=== PATIENT | female | born 1935 | race Caucasian/White ===

== ENCOUNTER 2017-04-24 18:58 | Emergency (ER) | payer OTHER ==
[~2017-04-24] VITALS: Ht 157.5 cm; Wt 69.4 kg
[~2017-04-24 18:58] MED LIST: AMLO5 PO; ANAS1 PO; ASPI81CH PO; Amiodarone HCl200 MG PO; CALCAVITDA PO; CEPH500 PO; CLON.1 PO; Calcium Citrat1 EA10; ELIQUIS5 MG PO; ESCI20 PO; ESOM20 PO; FERR325 PO; FOLI1 PO; HYDACE10B PO; HYDSUL200 PO; Hair, Skin & N1 EACH PO; INDA2.5 PO; Indapamide PO; K-Dur20 MEQ; LEVSOD75 PO; METO25 PO; MULVITA PO; Multivitamin1 EAC1 PO; OS-CAL; Omeprazole20 M1; Omeprazole20 M1 PO; POTA10T; POTA10T PO; POTCHL20ER PO; PROM25; PROM25 PO; SULTRIDS PO; TOCO400 PO; TORSE20; Toprol Xl25 MG PO; Vitamin E PO; WARF1 PO; WARF5; WARF5 PO; WARF7.5; [UNRECOGNIZED DRUG - OTHER]
[2017-04-24] MEDS ORDERED: LEVSOD50 PO (19:28)
[2017-04-24] MEDS ORDERED: TORSE20 PO (19:29)
[2017-04-24] MEDS ORDERED: POTCHL20ER PO (19:29)
[2017-04-24 19:37] LABS: International Normalized Ratio 1.03; Prothrombin Time Results 10.7 Sec (9.7-11.5)
== END 2017-04-24 20:21 | disposition home or self-care (01) ==
LOC: ER 18:58
PROVIDERS: Emergency Medicine
DX: S01.01XA Laceration without foreign body of scalp, initial encounter (principal); I10 Essential (primary) hypertension; I48.91 Unspecified atrial fibrillation; Z88.8 Allergy status to other drugs, medicaments and biological substances; Z79.899 Other long term (current) drug therapy; Z79.82 Long term (current) use of aspirin; Z90.710 Acquired absence of both cervix and uterus; Z87.891 Personal history of nicotine dependence; W01.0XXA Fall on same level from slipping, tripping and stumbling without subsequent striking against object, initial encounter; Y92.002 Bathroom of unspecified non-institutional (private) residence as the place of occurrence of the external cause
CPT/HCPCS: 12002; 70450; 85610; 85730; 99284

== ENCOUNTER 2017-06-10 08:43 | Day surgery (SDC) | payer OTHER ==
[~2017-06-10] VITALS: Ht 157.5 cm; Wt 71.3 kg
[~2017-06-10 08:43] MED LIST changes: +LEVSOD50 PO; +TORSE20 PO
== END 2017-06-10 11:20 | disposition home or self-care (01) ==
LOC: ORSCSDS 08:43
PROVIDERS: Otolaryngology
PROC: 03BS0ZX Excision of Right Temporal Artery, Open Approach, Diagnostic (ICD-10-PCS; principal; 2017-06-10 10:00)
DX: M31.6 Other giant cell arteritis (principal); H40.9 Unspecified glaucoma; I10 Essential (primary) hypertension; M32.9 Systemic lupus erythematosus, unspecified; G47.33 Obstructive sleep apnea (adult) (pediatric); Z86.718 Personal history of other venous thrombosis and embolism; Z99.81 Dependence on supplemental oxygen; J44.9 Chronic obstructive pulmonary disease, unspecified; F17.210 Nicotine dependence, cigarettes, uncomplicated; Z79.01 Long term (current) use of anticoagulants; Z79.899 Other long term (current) drug therapy
CPT/HCPCS: 88305; 88313; J0171; J1100; J2250; J3010; J7120

== ENCOUNTER 2018-03-14 10:31 | Inpatient (IN) | payer OTHER ==
[~2018-03-14] VITALS: Ht 165.1 cm; Wt 69.2 kg
[2018-03-14 10:50] LABS: Calcium, Ionized (POC) 1.19 mmol/L (1.10-1.46); Chloride (POC) 105 mmol/L (98-108); Creatinine (POC) 2.4 mg/dL (0.6-1.0); Glucose (ISTAT POC) 102 mg/dL (70-99); Hemoglobin (POC) 12.2 g/dL (12.0-16.0); Potassium (POC) 2.8 mmol/L (3.5-5.5); Sodium (POC) 143 mmol/L (135-148); Total CO2 (POC) 23 mmol/L (21-32)
[2018-03-14 11:12] LABS: Source, Urine Catheter
[2018-03-14 11:17] LABS: Appearance, Urine Clear (Clear); Bilirubin, Urine Neg (Neg); Blood, Urine 2+ (Neg); Color, Urine Yellow (P-Yellow); Glucose Qualitative, Urine 1+ (Neg); Ketones, Urine 1+ (Neg); Leukocyte Esterase, Urine Neg (Neg); Nitrite, Urine Neg (Neg); Protein, Urine 3+ (Neg); Urobilinogen, Urine NORM (Normal)
[2018-03-14 11:19] LABS: Hematocrit 37.4 % (33.0-51.0); Hemoglobin 11.9 g/dL (11.5-16.0); Mean Corpuscular HGB 32.8 pg (26.0-34.0); Mean Corpuscular HGB Conc 31.8 g/dL (31.5-36.5); Mean Corpuscular Volume 103 fL (80-100); Mean Platelet Volume 11.8 fL (9.1-12.4); Platelet Count 101 K/mm3 (150-400); RDW Coefficient Variation 13.1 % (11.7-14.2); RDW Standard Deviation 49.9 fL (35.1-46.3); Red Blood Cell Count 3.63 M/mm3 (3.80-5.20); White Blood Cell Count 4.26 K/mm3 (4.00-11.30)
[2018-03-14 11:31] LABS: International Normalized Ratio 1.3; Prothrombin Time Results 13.2 Sec (9.7-11.5)
[2018-03-14 11:32] LABS: Squamous Epithelial Cells Few /hpf (Few); U Amphetamine Screen Not Detected; U Barbituate Screen Not Detected; U Benzodiazapine Screen Not Detected; U Buprenorphine Screen Not Detected; U Cannabinoids Screen Not Detected; U Cocaine Screen Not Detected; U Methadone Screen Not Detected; U Methamphetamine Screen Not Detected; U Opiates Screen Not Detected; U Oxycodone Screen Not Detected; U Phencyclidine Screen Not Detected; U Propoxyphene Screen Not Detected; White Blood Cells, Urine Not Seen /hpf (0-5)
[2018-03-14 11:33] LABS: Bacteria Not Seen /hpf
[2018-03-14 11:34] LABS: Alanine Aminotransfer (ALT/SGP 30 U/L (12-78); Albumin, Blood 2.7 g/dL (3.4-5.0); Albumin/Globulin Ratio 0.7 (0.8-1.8); Alk Phos 45 U/L (50-136); Anion Gap 12 mmol/L (6-16); Aspartate Aminotrans (AST/SGOT 92 U/L (12-37); Bilirubin, Total 0.7 mg/dL (0.1-1.0); Blood Urea Nitrogen 37 mg/dL (8-24); Bun/Creatinine Ratio 16.6 (12.0-20.0); CO2, Blood 23 mmol/L (21-32); Chloride, Blood 110 mmol/L (98-108); Creatinine, Blood 2.23 mg/dL (0.40-1.00); Ethanol (Alcohol), Blood, Med <3 mg/dL; Globulin, Blood 3.7 g/dL (2.2-4.0); Glomerular Filtration Rate 22 (60-); Glucose, Blood 100 mg/dL (70-99); Potassium, Blood 3.1 mmol/L (3.5-5.5); Sodium, Blood 145 mmol/L (136-145); Total Protein, Blood 6.4 g/dL (6.4-8.2)
[2018-03-14 11:42] LABS: BAND PERCENT MAN 40 % (0-8); BASOPHILS ABSOLUTE MAN 0.04 K/mm3 (0.00-0.23); BASOPHILS PERCENT MAN 1 % (0-2); EOSINOPHILS PERCENT MAN 0 % (0-6); LYMPHOCYTES % ATYPICAL MANUAL 1 % (0-0); LYMPHOCYTES ABSOLUTE MAN 0.59 K/mm3 (0.84-5.20); LYMPHOCYTES PERCENT MAN 13 % (21-46); METAMYELOCYTE ABSOLUTE MAN 0.42 K/mm3 (0.00-0.00); METAMYELOCYTE PERCENT MAN 10 % (0-0); MONOCYTES ABSOLUTE MAN 0.51 K/mm3 (0.16-1.47); MONOCYTES PERCENT MAN 12 % (4-13); NEUTROPHILS ABSOLUTE MAN 2.68 K/mm3 (1.96-9.15); SEG NEUTROPHILS PERCENT MAN 23 % (41-73); TOTAL CELLS COUNTED 100
[2018-03-14 11:49] LABS: PCO2 Arterial 50.5 mmHg (35-45)
[2018-03-14 11:50] LABS: PO2 Arterial 49.8 mmHg (80-100); pH Blood Arterial 7.29 (7.35-7.45)
[2018-03-14 12:08] LABS: Influenza A Negative (NEGATIVE); Influenza B Negative (NEGATIVE)
[2018-03-14 16:38] LABS: Color, CSF No Color (No Color)
[2018-03-14 16:39] LABS: Appearance, CSF Clear (Clear)
[2018-03-14 17:11] LABS: WBC Count, CSF 3 /mm3 (0-5)
[2018-03-14 17:13] LABS: RBC Count, CSF 1 /mm3 (0-0)
--- NOTE | 2018-03-14 17:23 | NUR ---
FEMALE PATIENT ADMITTED TO ICU5 FROM ER. MOVED TO BED WITH ORTEGA SLIDER SHEET. EXTREMELY RESTLESS. OCC PINCHING AND REACHING FOR TUBES. PATIENT HAD A LARGE FOUL SMELLING LIQ BROWN BM. CLEANED UP AND RECTAL TUBE APPLIED. THIS WAS HER THIRD STOOL IN THE LAST FEW HOURS. NIYA JACKET APPLIED TO KEEP HER FRON SLIDING OUT THE FOOT OF THE BED. ALSO NASH WRIST RESTRAINTS. WHEN ASKED PATIENT TO SWALLOW DURING THE INSERTION OF A #16 SUMP SHE SAID SEVERAL TIMES "i WILL, I WILL" ON 12L OXYMIZER WITH SPO2 AT 96%. ANOTHER IV STARTED ON LEFT WRIST #20.
[2018-03-14 17:28] LABS: Glucose, CSF 69 mg/dL (40-70)
--- NOTE | 2018-03-14 19:30 | NUR ---
ASSUMED CARE BEDSIDE REPORT RECIEVED. PT IS LAYING SIDEWAYS IN BED WITH LEGS OVER BEDRAIL. PT IN NIYA VEST AND SBW RESTRAINTS. PT IS FIDGETING AND RESTLESS. PT IS UNABLE TO FOLLOW COMMANDS OR ANSWER QUESTIONS. PT SPEAKS SOME WORDS AT TIMES, BUT IS CONFUSED. PT ON 10L OXYMIZER, VITAL SIGNS STABLE, SPO2 90%. NGT IN PLACE, CLAMPED. RECTAL TUBE IN PLACE WITH LARGE AMOUNTS OF LIQUID BROWN/BILE COLORED STOOL. PT WITH MULTIPLE BRUISES ON BLE. SEE PHOTOS. WILL CONTINUE TO MONITOR.
[2018-03-14] MEDS ORDERED: Toviaz8 MG PO (20:35)
--- NOTE | 2018-03-14 21:49 | NUR ---
SHIRLENE SHANNON CALLED GARRETT SHANNON NP AND UPDATED TO PT CONDITION AND VITAL SIGNS. ORDER RECIEVED FOR BIPAP TITRATE NEEDED. RT NOTIFIED. WILL CONTINUE TO MONITOR.
--- NOTE | 2018-03-14 22:21 | NUR ---
BIPAP PT PLACED ON BIPAP 02/27, FIO2 50%. PT RESTING QUIETLY WITH SPO2 >94% AT THIS TIME. WILL CONTINUE TO MONITOR.
[2018-03-14 22:44] LABS: Magnesium, Blood 2.2 mg/dL (1.6-2.4); Potassium, Blood 4.3 mmol/L (3.5-5.5)
[2018-03-14 22:52] LABS: pH Blood Arterial 7.25 (7.35-7.45)
[2018-03-14 22:53] LABS: PCO2 Arterial 50.9 mmHg (35-45); PO2 Arterial 73.7 mmHg (80-100)
[2018-03-14 23:26] LABS: Bun/Creatinine Ratio 15.7 (12.0-20.0); Calcium, Blood 7.8 mg/dL (8.5-10.1); Creatinine, Blood 3.31 mg/dL (0.40-1.00); Potassium, Blood 4.3 mmol/L (3.5-5.5)
[2018-03-14 23:44] LABS: Source, Urine Catheter
[2018-03-14 23:46] LABS: Bilirubin, Urine Neg (Neg); Blood, Urine 5+ (Neg); Glucose Qualitative, Urine 1+ (Neg); Ketones, Urine Neg (Neg); Leukocyte Esterase, Urine Neg (Neg); Nitrite, Urine Neg (Neg); Protein, Urine 3+ (Neg); Specific Gravity, Urine 1.015 (1.003-1.022); Urobilinogen, Urine NORM (Normal)
--- NOTE | 2018-03-15 00:09 | NUR ---
WO[employer]OWEL MACHINE OPERATOR GARRETT SHANNON HERE TO SEE PT. REVIEWED CHART, ASSESSED PT. CHEST XRAY SHOWED NGT TO BE COILED UP IN INCORRECT PLACEMENT. ORDERS TO REMOVE NGT AND PLACE DOBHOFF. DOBHOFF PLACED, REPEAT CHEST XRAY DONE, PLACEMENT CONFIRMED. RUBIN INSERTED PER ORDERS, UA SENT. MRSA NARES SENT. REPEAT LABS ORDERED. CRITICAL ABG VALUES REVIEWED WITH GARRETT SHANNON. SEE ORDER HISTORY FOR NEW MEDS/ORDERS. PT AGITATED WITH CARE, RESTING QUIETLY NOW. WILL CONTINUE TO MONITOR.
[2018-03-15 00:13] LABS: Appearance, Urine Hazy (Clear); Color, Urine Yellow (P-Yellow)
[2018-03-15 00:15] LABS: Amorphous Heavy ({null, 0-Heavy}); Bacteria Rare /hpf; Hyaline Casts 0-2 /lpf (0-2); Squamous Epithelial Cells Rare /hpf (Few); White Blood Cells, Urine 0-2 /hpf (0-5)
[2018-03-15 02:44] LABS: Hemoglobin 10.5 g/dL (11.5-16.0); Mean Corpuscular HGB 33.9 pg (26.0-34.0); Mean Corpuscular HGB Conc 31.8 g/dL (31.5-36.5); Mean Platelet Volume 11.5 fL (9.1-12.4); Platelet Count 82 K/mm3 (150-400); RDW Coefficient Variation 13.6 % (11.7-14.2); RDW Standard Deviation 53.2 fL (35.1-46.3); White Blood Cell Count 9.07 K/mm3 (4.00-11.30)
[2018-03-15 02:53] LABS: Mean Corpuscular Volume 107 fL (80-100)
[2018-03-15 02:57] LABS: Bun/Creatinine Ratio 15.2 (12.0-20.0); Calcium, Blood 7.6 mg/dL (8.5-10.1); Creatinine, Blood 3.63 mg/dL (0.40-1.00); Magnesium, Blood 2.2 mg/dL (1.6-2.4); Potassium, Blood 3.8 mmol/L (3.5-5.5)
[2018-03-15 03:00] LABS: Albumin, Blood 2.3 g/dL (3.4-5.0); Anion Gap 12 mmol/L (6-16); Blood Urea Nitrogen 56 mg/dL (8-24); Bun/Creatinine Ratio 15.6 (12.0-20.0); CO2, Blood 21 mmol/L (21-32); Calcium, Blood 7.6 mg/dL (8.5-10.1); Chloride, Blood 114 mmol/L (98-108); Glomerular Filtration Rate 13 (60-); Glucose, Blood 99 mg/dL (70-99); Phosphorus, Blood 3.3 mg/dL (2.5-4.9); Potassium, Blood 3.8 mmol/L (3.5-5.5); Sodium, Blood 147 mmol/L (136-145)
--- NOTE | 2018-03-15 03:29 | NUR ---
DR SCHILLING NOTIFIED DR SCHILLING OF BNP AND OTHER LAB WORK. ORDER RECIEVED TO STOP IVF AND GET ANOTHER RENAL PANEL. ALSO NOTIFIED OF ONLY 50 ML URINE OUTPUT SINCE RUBIN INSERTION.
[2018-03-15 04:35] LABS: BAND PERCENT MAN 41 % (0-8); BASOPHILS PERCENT MAN 0 % (0-2); EOSINOPHILS PERCENT MAN 0 % (0-6); LYMPHOCYTES PERCENT MAN 10 % (21-46); METAMYELOCYTE ABSOLUTE MAN 0.54 K/mm3 (0.00-0.00); METAMYELOCYTE PERCENT MAN 6 % (0-0); MONOCYTES ABSOLUTE MAN 1.36 K/mm3 (0.16-1.47); MONOCYTES PERCENT MAN 15 % (4-13); MYELOCYTE ABSOLUTE MAN 0.09 K/mm3 (0.00-0.00); MYELOCYTE PERCENT MAN 1 % (0-0); NEUTROPHILS ABSOLUTE MAN 6.16 K/mm3 (1.96-9.15); SEG NEUTROPHILS PERCENT MAN 27 % (41-73); TOTAL CELLS COUNTED 100
--- NOTE | 2018-03-15 06:20 | NUR ---
SHIFT SUMMARY PT REMAINS ON BIPAP AT THIS TIME 02/27, FIO2 25%. VITAL SIGNS HAVE REMAINED STABLE. PT CONTINUES TO BE CONFUSED/AGITATED AT TIMES. PT RESTING QUIETLY AT THIS TIME. PT RESTRAINED WITH NIYA VEST AND SBW RESTRAINTS. DOBHOFF REMAINS IN PLACE. RUBIN REMAINS IN PLACE WITH ONLY 50 ML OUTPUT FOR THIS SHIFT. DR SCHILLING AWARE. RECTAL TUBE REMAINS IN PLACE WITH LARGE OUTPUT OF LIQUID BROWN/BILE STOOL. IV'S SALINE LOCKED. SEE PREVIOUS NOTES FOR MORE SHIFT INFO. WILL CONTINUE TO MONITOR AND REPORT OFF TO ONCOMING RN.
--- NOTE | 2018-03-15 07:15 | NUR ---
RECEIVED REPORT FROM GARRETT, BUFFER COPPER, AND ASSUMED CARE OF PT.
--- NOTE | 2018-03-15 07:30 | NUR ---
BIPAP SETTINGS 12/8-25%, ROSS WITH RESPIRATORY AT BEDSIDE. SATS 95%, VSS. CONFUSED, DOES NOT FOLLOW DIRECTIONS, OPENS EYES WHEN TALKING TO HER. LUNGS COARSE THROUGHOUT. SR 80'S ON MONITOR. RECTAL TUBE IN PLACE COLLECTED BROWN LIQUID STOOL. RUBIN IN PLACE WITH SCANT AMOUNTS YELLOW URINE. BILATERAL SOFT WRIST RESTRAINTS IN PLACE, PULLS OFF BIPAP MASK AND TUBES. NIYA VEST IN PLACE, PT MOVES AROUND ALOT IN BED AND ATTEMPTS TO SCOOT DOWN AND OUT THE BOTTOM OF THE BED. DOBHOFF IN PLACE, NO RESIDUALS. LEFT FOREARM AND LEFT WRIST SALINE LOCKS, RECEIVES ANTIBIOTICS.
[2018-03-15 08:11] LABS: PCO2 Arterial 45.1 mmHg (35-45); PO2 Arterial 61.7 mmHg (80-100)
[2018-03-15 08:12] LABS: pH Blood Arterial 7.29 (7.35-7.45)
--- NOTE | 2018-03-15 08:30 | NUR ---
CALLED DR. LINO WITH CRITICAL ABG RESULTS. CALLED HARPER IN RESPIRATORY TO INCREASE PRESSURES ON BIPAP.
--- NOTE | 2018-03-15 09:04 | NUR ---
Angela was sleeping on non-invasive airway support and appeared comfortable and well managed. No indications of distress or conflict noted. She showed modest signs of awareness, but remained non-communicative throughout. I provided supportive bedside presence, words of reassurance, and audible prayer for encouragement, comfort and non-pharmaceutical benefit.
--- NOTE | 2018-03-15 09:20 | NUR ---
ECHO AT BEDSIDE.
--- NOTE | 2018-03-15 11:17 | NUR ---
STARTED NEPRO TUBE FEEDINGS AT 20 CC/HR TO START, WILL RAMP UP TOLERATED TO GOAL RATE OF 40 CC/HR, H2O 30 CC FLUSHES EVERY 4 HOURS. CHECKED DOBHOFF PLACEMENT, WITH GOOD PLACEMENT, NO RESIDUALS.
[2018-03-15 16:42] LABS: Albumin, Blood 2.3 g/dL (3.4-5.0); Anion Gap 11 mmol/L (6-16); Blood Urea Nitrogen 69 mg/dL (8-24); Bun/Creatinine Ratio 15.3 (12.0-20.0); CO2, Blood 22 mmol/L (21-32); Calcium, Blood 7.8 mg/dL (8.5-10.1); Chloride, Blood 114 mmol/L (98-108); Glomerular Filtration Rate 10 (60-); Glucose, Blood 101 mg/dL (70-99); Phosphorus, Blood 3.7 mg/dL (2.5-4.9); Potassium, Blood 3.5 mmol/L (3.5-5.5); Sodium, Blood 147 mmol/L (136-145); Uric Acid, Blood 8.3 mg/dL (2.6-6.0)
--- NOTE | 2018-03-15 18:30 | NUR ---
PATIENT INTUBATED BY DR. ZHANG. VENTILATOR SETTINGS 16/400/5 30%. PROPOFOL STARTED AT 10 MCG/KG/HR = 3.4 ML/HR. VSS. SINUS RHYTHM 92.
[2018-03-15 18:49] LABS: Albumin, Blood 2.3 g/dL (3.4-5.0); Anion Gap 13 mmol/L (6-16); Blood Urea Nitrogen 72 mg/dL (8-24); Bun/Creatinine Ratio 15.4 (12.0-20.0); CO2, Blood 21 mmol/L (21-32); Calcium, Blood 7.8 mg/dL (8.5-10.1); Chloride, Blood 112 mmol/L (98-108); Creatinine, Blood 4.68 mg/dL (0.40-1.00); Glomerular Filtration Rate 9 (60-); Glucose, Blood 107 mg/dL (70-99); Phosphorus, Blood 3.5 mg/dL (2.5-4.9); Potassium, Blood 3.3 mmol/L (3.5-5.5); Sodium, Blood 146 mmol/L (136-145)
[2018-03-15 19:22] LABS: CPK Creatine Kinase >20000 U/L (26-193)
[2018-03-15 20:17] LABS: Base Excess Venous -5.8 mmol/L; Bicarbonate Venous 19.2 mmol/L (24.0-30.0); PCO2 Venous 43.3 mmHg (38-42); PO2 Venous 30.8 mmHg (38-42); pH Blood Venous 7.29 (7.34-7.37)
--- NOTE | 2018-03-15 23:42 | NUR ---
ASSUMED CARE RECEIVED REPORT FROM ICU, RN. PT IS ADMITTED AFTER BEING FOUN DOWN BY FAMILY AT HOME. PT IS CURRENTLY INTUBATED. VENT SETTINGS ARE AC 16, TV 400, FIO2 30%, AND PEEP 5. PT SPO2 IS MAINTAINING IN THE MID 90'S AT THIS TIME. AT THE TIME OF SHIFT REPORT PT IS RECEIVING NS AT 250ML/HR. SHORTLY AFTER CARE ASSUMED ORDER RECEIVED FOR 1/2NS AT 200ML/HR. FLUIDS CHANGED PER ORDER. PT IS ALSO RECEIVING PROPOFOL FOR SEDATION AT 10MCG/KG/MIN. PT IS RESPONSIVE TO NOXIOUS STIMULI ONLY AT THIS TIME. PT HAS RUBIN TEMP PROBE IN PLACE. PT CURRENT TEMP IS IN THE 98.4 RANGE. PT HAS HAD VERY SMALL AMOUNT OF URINE OUTPUT OVER DAY SHIFT PER REPORT. PT IS ON CONTACT PRECAUTIONS DUE TO C-DIFF. PT HAS A RECTAL TUBE IN PLACE. PT TAKEN TO CT FOR ABD/PELVIC SCAN SHORTLY AFTER CARE ASSUMED. ABDOMINAL PRESSURE TAKEN WITH A RESULT OF 15. INSTRUCTIONS WERE GIVEN/LEFT BY DAY SHIFT THAT DR ZHANG IS TO BE CALLED WITH ABD PRESSURE IF RESULTS ARE [address] ZHANG NOT CALLED WITH RESULTS AT THIS TIME. ASSUMED CARE OF PT AT THE ITME OF SHIFT REPORT. WILL CONTINUE TO MONITOR PT
[2018-03-16 03:35] LABS: Hematocrit 30.6 % (33.0-51.0); Hemoglobin 9.9 g/dL (11.5-16.0); Mean Corpuscular HGB 33.8 pg (26.0-34.0); Mean Corpuscular HGB Conc 32.4 g/dL (31.5-36.5); Mean Platelet Volume 12.1 fL (9.1-12.4); Platelet Count 75 K/mm3 (150-400); RDW Coefficient Variation 13.7 % (11.7-14.2); RDW Standard Deviation 53.1 fL (35.1-46.3); Red Blood Cell Count 2.93 M/mm3 (3.80-5.20)
[2018-03-16 03:38] LABS: Mean Corpuscular Volume 104 fL (80-100)
[2018-03-16 03:53] LABS: Albumin, Blood 1.9 g/dL (3.4-5.0); Anion Gap 10 mmol/L (6-16); Blood Urea Nitrogen 76 mg/dL (8-24); Bun/Creatinine Ratio 16.3 (12.0-20.0); CO2, Blood 20 mmol/L (21-32); CPK Creatine Kinase 906 U/L (26-193); Calcium, Blood 7.1 mg/dL (8.5-10.1); Chloride, Blood 115 mmol/L (98-108); Creatinine, Blood 4.67 mg/dL (0.40-1.00); Glomerular Filtration Rate 10 (60-); Glucose, Blood 91 mg/dL (70-99); Magnesium, Blood 2.2 mg/dL (1.6-2.4); Phosphorus, Blood 2.1 mg/dL (2.5-4.9); Potassium, Blood 4.1 mmol/L (3.5-5.5); Sodium, Blood 145 mmol/L (136-145)
--- NOTE | 2018-03-16 03:59 | NUR ---
SEDATION VACATION WEAN AND SEDATION VACATION STARTED AT APPROX 0357. WILL CONTINUE TO MONITOR PT.
[2018-03-16 04:36] LABS: BAND PERCENT MAN 37 % (0-8); BASOPHILS PERCENT MAN 0 % (0-2); EOSINOPHILS ABSOLUTE MAN 0.09 K/mm3 (0.00-0.68); EOSINOPHILS PERCENT MAN 1 % (0-6); LYMPHOCYTES ABSOLUTE MAN 0.89 K/mm3 (0.84-5.20); LYMPHOCYTES PERCENT MAN 9 % (21-46); MONOCYTES ABSOLUTE MAN 0.59 K/mm3 (0.16-1.47); MONOCYTES PERCENT MAN 6 % (4-13); MYELOCYTE ABSOLUTE MAN 0.09 K/mm3 (0.00-0.00); MYELOCYTE PERCENT MAN 1 % (0-0); NEUTROPHILS ABSOLUTE MAN 8.21 K/mm3 (1.96-9.15); SEG NEUTROPHILS PERCENT MAN 46 % (41-73); TOTAL CELLS COUNTED 100
[2018-03-16 05:00] LABS: PCO2 Arterial 38.1 mmHg (35-45); PO2 Arterial 56.8 mmHg (80-100)
--- NOTE | 2018-03-16 06:45 | NUR ---
SHIFT SUMMARY NOTE PT REMAINS INTUBATED AT THIS TIME. PT VENT SETTINGS AT THIS TIME ARE AC 16, TV 400, FIO2 40%, PEEP 5. PT IS CURRENTLY MAINTAINING SPO2 IN THE LOW 90'S. PT CONTINUES TO HAVE THICK YELLOW SPUTUM SUCTIONED FROM ETT TUBE. PT CONTINUES TO HAVE RUBIN TEMP PROBE IN PLACE. PT TEMPERATURE HAS MAINTAINED IN THE 98.5 RANGE THROUGH MUCH OF THE NIGHT TEMPERATURE INCREASED TO 99.0 AT APPROX 0600. PT HAD MINIMAL URINE OUTPUT OVERNIGHT OF APPROX 30ML. PT IS CURRENTLY RECEIVING PROPOFOL AT 25MCG/KG/MIN FOR SEDATION. PT SEDATION VACATION WAS APPROX 45MIN. REFER TO RT CHARTING FOR TIMES AND DETAILS OF WEAN TRIAL. PT WAS ABLE TO WAKE UP AND FOLLOW COMMANDS THROUGH SEDATION VACATION. PT IS RECEIVING 1/2 NS AT 200ML/HR IN ADDITION TO PROPOFOL. PT IS RECEIVING TF AT GOAL RATE OF 40ML/HR. PT HAS DOBHOFF IN PLACE. PT CONTINUES TO HAVE RECTAL TUBE IN PLACE. PT HAS HAD DARK GREEN LIQUID STOOL FROM RECTAL TUBE. WILL REPORT OFF TO ONCOMING DAY SHIFT NURSE.
--- NOTE | 2018-03-16 11:15 | NUR ---
PT LIGHLY SEDATED AND RESTING WELL ON PROPOFOL. PT VSS NOTED. DR DOOLEY IN AND NS TO BE CHANGED TO 150ML AND WILL FOLLOW U.O. PT WAS LEAKING FORM RECTAL TUBE AND CLEANED.
--- NOTE | 2018-03-16 14:20 | NUR ---
SL INCREASE IN AGITATION, PROPOFOL INC TO 30MCG. VSS. TEMP SLOWLY INC NOW TO 99.9 NOTED.
--- NOTE | 2018-03-16 17:07 | NUR ---
PT RESTING WELL WITH PROPOFOL AT 30MCG. TOLERATING TF NEPRO AT 40 AND GOAL. FLEXISEAL SLOWING WITH ONLY 100ML OUT. UO ONLY 100ML THIS SHIFT EVEN WITH 4MG BUMEX EARLIER. VSS. WITH POSITIONING FLEXISEAL HAS NOT LEAKED AGAIN TO THIS POINT. PT WILL GRIMISE TO ORAL CARE AND MOVEMENT.
--- NOTE | 2018-03-16 17:17 | NUR ---
REPORT GIVEN TO MANISH Simon RN WHO WILL REPORT TO NOC SHIFT.
--- NOTE | 2018-03-16 19:15 | NUR ---
ASSUMED CARE REPORT AND ASSESSMENT COMPLETED. PT INTUBATED AT AC16/400/45%/5 AND SEDATED VIA PROPOFOL AT 30MCG/KG/MIN. PT OPENS EYES TO VOICE, + COUGH & GAG, WITH PAIN RESPONSE TO ALL CARE BUT DOES NOT CURRENTLY FOLLOW COMMANDS. VSS, EKG SHOWS SR AND O2 SATS 95%. 1/2 NS AT 150ML/HR AND NS TKO. FC IN PLACE WITH MINIMAL UOP AND RECTAL TUBE DRAINING TO GRAVITY. PLAN TO CALL FOR PAIN CONTROL MEDS AND SBT IN AM.
--- NOTE | 2018-03-17 04:00 | NUR ---
SBT PROPOFOL AT 10MCG/KG/MIN, PT WAKES AFTER FIVE MINUTES, OPENS EYES TO VOICE, IS ABLE TO FOLLOW SIMPLE COMMANDS AND ANSWER YES/NO QUESTIONS VIA SHAKING HEAD. CURRENTLY PT DENIES PAIN OR FEELING LIKE SHE IS HAVING DIFFICULTY BREATHING. TV'S 300-420'S, RR 22-24 BUT SBP SLOWLY RISING FROM 140'S TO 160'S. PLAN TO LEAVE PT ON PS 5/0 FIO2 AT 40% SHE TOLERATES.
[2018-03-17 04:26] LABS: Hematocrit 29.5 % (33.0-51.0); Hemoglobin 9.5 g/dL (11.5-16.0); Mean Corpuscular HGB 33.5 pg (26.0-34.0); Mean Corpuscular HGB Conc 32.2 g/dL (31.5-36.5); Mean Corpuscular Volume 104 fL (80-100); Mean Platelet Volume 12.3 fL (9.1-12.4); Platelet Count 75 K/mm3 (150-400); RDW Coefficient Variation 13.9 % (11.7-14.2); RDW Standard Deviation 53.7 fL (35.1-46.3); Red Blood Cell Count 2.84 M/mm3 (3.80-5.20); White Blood Cell Count 9.52 K/mm3 (4.00-11.30)
[2018-03-17 04:39] LABS: Albumin, Blood 1.8 g/dL (3.4-5.0); Anion Gap 10 mmol/L (6-16); Blood Urea Nitrogen 81 mg/dL (8-24); Bun/Creatinine Ratio 16.2 (12.0-20.0); CO2, Blood 18 mmol/L (21-32); Calcium, Blood 7.3 mg/dL (8.5-10.1); Chloride, Blood 108 mmol/L (98-108); Creatinine, Blood 4.99 mg/dL (0.40-1.00); Glomerular Filtration Rate 9 (60-); Glucose, Blood 93 mg/dL (70-99); Phosphorus, Blood 1.6 mg/dL (2.5-4.9); Potassium, Blood 3.6 mmol/L (3.5-5.5); Sodium, Blood 136 mmol/L (136-145); Vancomycin, Random 13.9 ug/mL
--- NOTE | 2018-03-17 04:45 | NUR ---
RETURN TO AC PT RR INCREASING TO 28. WHEN ASKED, PT NODS HEAD YES TO QUESTIONS ABOUT INCREASED WORK OF BREATHING AND PAIN. RT NOTIFIED AND PT RETURNED TO AC 16/400/40/5 AND PROPOFOL TITRATED BACK UP TO 40MCG/KG/MIN.
[2018-03-17 05:20] LABS: BAND PERCENT MAN 14 % (0-8); BASOPHILS PERCENT MAN 0 % (0-2); EOSINOPHILS ABSOLUTE MAN 0.19 K/mm3 (0.00-0.68); EOSINOPHILS PERCENT MAN 2 % (0-6); LYMPHOCYTES ABSOLUTE MAN 0.28 K/mm3 (0.84-5.20); LYMPHOCYTES PERCENT MAN 3 % (21-46); MONOCYTES ABSOLUTE MAN 0.38 K/mm3 (0.16-1.47); MONOCYTES PERCENT MAN 4 % (4-13); MYELOCYTE ABSOLUTE MAN 0.09 K/mm3 (0.00-0.00); MYELOCYTE PERCENT MAN 1 % (0-0); NEUTROPHILS ABSOLUTE MAN 8.56 K/mm3 (1.96-9.15); SEG NEUTROPHILS PERCENT MAN 76 % (41-73); TOTAL CELLS COUNTED 100
--- NOTE | 2018-03-17 06:48 | NUR ---
SHIFT SUMMARY NO ACUTE CHANGES OVERNIGHT. PT REMAINS INTUBATED AT AC 16/450/40/5 AND SEDATED VIA PROPOFOL AT 40MCG/KG/MIN. 1/2 NS AT 150ML/HR AND NS TKO. TF REMAIN AT GOAL OF 40ML/HR AND RECTAL TUBE HAS HAD 150ML OUT. CALL TO DR DOOLEY THIS AM FOR LOW PHOS AND UPDATED ON UPWARD TRENDING BUN AND CREATININE ORDER OBTAINED FOR KPHOS RIDER ONCE IT ARRIVES FROM PHARMACY. VSS, BP OCCASIONALY HYPERTENSIVE ESPECIALLY DURING SBT, EKG SHOWS SB/SR AND O2 SATS 96%.
--- NOTE | 2018-03-17 08:36 | NUR ---
PT RESTING W/O CURRENT DISTRESS EXCEPT FOR ORAL CARE WHEN HE GRIMISES. IVF NOTED. PT SEEM TO BE SLOWING VIA FLEXISEAL TUBE, GREEN RETURN. U.O. 50ML PRIOR TO AM BUMEX DOSE FOR THIS SHIFT. PICC LINE APPROVED PER DR LINO. PT TOLERATING T.F. AT 40ML OF NEPRO. NOTHING SX PER ET AT THIS TIME. GENERAL PUFFINESS OF EXTREMETIES NOTED.
--- NOTE | 2018-03-17 09:26 | NUR ---
DOBBHOF TUBE APPROX +/- 1CM AT 66CM AND WELL SEQUIRED.
--- NOTE | 2018-03-17 11:19 | NUR ---
PICC PLACED RINKU AND NOW INFUSING IVF WELL. 1/2 NS D/C. YANETO NOW INFUSING.
--- NOTE | 2018-03-17 11:40 | NUR ---
T.F. NEPRO ADJUSTED TO 35ML PER DIETARY.
--- NOTE | 2018-03-17 18:25 | NUR ---
PT RESTING W/O RESP. OR PHSYCIAL DISTRESS. VS, SATS, I/O NOTED WITH INC U.O. NOTED. PT REMAINS RESTRAINED, AND ONLY HAS HAD FENT. MEDS TIMES 2 THIS DAY ABOVE THE PROPOFOL .
--- NOTE | 2018-03-17 19:31 | NUR ---
CARE ASSUMED REPORT RECEIVED, CARE ASSUMED. PT INTUBATED AND SEDATED. SEE SHIFT ASSESSMENT. VITALS STABLE. SEE FLOWSHEET.
--- NOTE | 2018-03-17 20:32 | NUR ---
DOBHOFF REPLACEMENT CALL TO DR JULIEN FOR DOBHOFF PLACEMENT CONFIRMATION. PER DR JULIEN, DOBHOFF LOOKS GOOD AND CAN BE USED.
--- NOTE | 2018-03-17 21:52 | NUR ---
DOBHOFF REPLACEMENT NEW DOBHOFF PLACED PREVIOUS DOBHOFF NOT PATENT AFTER MULTIPLE ATTEMPTS. PLACEMENT CONFIRMED. TUBE FEEDING RESTARTED.
[2018-03-18 03:57] LABS: BASOPHILS ABSOLUTE AUTO 0.02 K/mm3 (0.00-0.23); BASOPHILS PERCENT AUTO 0 % (0-2); EOSINOPHILS ABSOLUTE AUTO 0.19 K/mm3 (0.00-0.68); EOSINOPHILS PERCENT AUTO 3 % (0-6); Hemoglobin 9.1 g/dL (11.5-16.0); IMMATURE GRAN PERCENT AUTO 1 % (0-1); LYMPHOCYTES ABSOLUTE AUTO 0.39 K/mm3 (0.84-5.20); LYMPHOCYTES PERCENT AUTO 5 % (21-46); MONOCYTES ABSOLUTE AUTO 0.78 K/mm3 (0.16-1.47); MONOCYTES PERCENT AUTO 10 % (4-13); Mean Corpuscular HGB 33.2 pg (26.0-34.0); Mean Corpuscular HGB Conc 32.5 g/dL (31.5-36.5); Mean Corpuscular Volume 102 fL (80-100); Mean Platelet Volume 11.9 fL (9.1-12.4); NEUTROPHILS ABSOLUTE AUTO 6.13 K/mm3 (1.96-9.15); NEUTROPHILS PERCENT AUTO 81 % (41-73); Platelet Count 70 K/mm3 (150-400); Red Blood Cell Count 2.74 M/mm3 (3.80-5.20); White Blood Cell Count 7.61 K/mm3 (4.00-11.30)
[2018-03-18 04:14] LABS: Albumin, Blood 1.6 g/dL (3.4-5.0); Anion Gap 14 mmol/L (6-16); Blood Urea Nitrogen 88 mg/dL (8-24); Bun/Creatinine Ratio 16.7 (12.0-20.0); CO2, Blood 17 mmol/L (21-32); Calcium, Blood 8.1 mg/dL (8.5-10.1); Chloride, Blood 104 mmol/L (98-108); Creatinine, Blood 5.27 mg/dL (0.40-1.00); Glomerular Filtration Rate 8 (60-); Glucose, Blood 88 mg/dL (70-99); Magnesium, Blood 1.9 mg/dL (1.6-2.4); Phosphorus, Blood 3.6 mg/dL (2.5-4.9); Potassium, Blood 3.8 mmol/L (3.5-5.5); Sodium, Blood 135 mmol/L (136-145); Vancomycin, Random 24.9 ug/mL
[2018-03-18 05:13] LABS: PCO2 Arterial 36.9 mmHg (35-45); PO2 Arterial 66.8 mmHg (80-100); pH Blood Arterial 7.25 (7.35-7.45)
--- NOTE | 2018-03-18 06:28 | NUR ---
SUMMARY THROUGHOUT NIGHT, PT HAS TOLERATED VENT AND SEDATION. WEANING TRIAL PER RT THIS MORNING. ABG PH CRITICAL AFTER WEAN. DR. TERRAZAS NOTIFIED. PLAN IS TO FOLLOW UP WITH [facility] THIS MORNING FOR POSSIBLE DIALYSIS. VITAL STABLE. PT MEDICATED FOR PAIN NEEDED. SEE ASSESSMENTS/FLOWSHEETS.
--- NOTE | 2018-03-18 08:29 | NUR ---
RECEIVED REPORT AND ASSUMED CARE OF PATIENT. SHE IS SEDATED WITH PROPOFOL 35 MCG/KG/MIN AND INTUBATED, VENT SETTINGS ARE AC: 16/400/5/35% WITH RR 18. RUBIN AND RECTAL TUBES DRAINING TO GRAVITY.
--- NOTE | 2018-03-18 10:16 | NUR ---
DR TERRAZAS IN TO SEE PT, STATES THAT PT IS NOT READY TO EXTUBATE AT THIS TIME. WILL CONTINUE TO MONITOR. WOULD LIKE A VBG DONE AROUND 1300 TO EVALUATE PH LEVELS.
[2018-03-18 14:13] LABS: Base Excess Venous -11.9 mmol/L; Bicarbonate Venous 15.4 mmol/L (24.0-30.0); PCO2 Venous 36.9 mmHg (38-42); PO2 Venous 47.5 mmHg (38-42); pH Blood Venous 7.23 (7.34-7.37)
--- NOTE | 2018-03-18 18:48 | NUR ---
SHIFT SUMMARY: PT CONTINUED TO BE SEDATED AND INTUBATED THROUGHOUT SHIFT, NO SIGNIFICANT CHANGES TOTAL OF 450 UO DURING SHIFT. PROPOFOL CONTINUING AT 35 MCG/KG/MIN. VENT SETTINGS AC: 16/400/5/35% RR OF 17 AT THIS TIME. TUBE FEEDINGS AT 35 ML/HOUR. RECTAL AND RUBIN TUBES DRAINING TO GRAVITY. PLAN TO CONTINUE MONITORING AND HOLD ELAQUIS FOR POSSIBLE CATH PLACEMENT TO DIALYZE ON 03/19. WILL GIVE REPORT TO BIPIN VASQUEZ.
--- NOTE | 2018-03-18 20:52 | NUR ---
CARE ASSUMED REPORT RECEIVED, CARE ASSUMED. PT REMAINS INTUBATED AND SEDATED. SEE ICU FLOWSHEET. VITALS STABLE, SEE FLOWSHEET. SEE SHIFT ASSESSMENT.
[2018-03-19 03:36] LABS: Hematocrit 24.2 % (33.0-51.0); Mean Corpuscular HGB 32.9 pg (26.0-34.0); Mean Corpuscular HGB Conc 33.1 g/dL (31.5-36.5); Mean Corpuscular Volume 100 fL (80-100); Platelet Count 61 K/mm3 (150-400); RDW Coefficient Variation 13.8 % (11.7-14.2); RDW Standard Deviation 50.6 fL (35.1-46.3); Red Blood Cell Count 2.43 M/mm3 (3.80-5.20); White Blood Cell Count 5.32 K/mm3 (4.00-11.30)
[2018-03-19 03:50] LABS: Albumin, Blood 1.4 g/dL (3.4-5.0); Anion Gap 10 mmol/L (6-16); Blood Urea Nitrogen 92 mg/dL (8-24); Bun/Creatinine Ratio 16.8 (12.0-20.0); CO2, Blood 22 mmol/L (21-32); Calcium, Blood 8.6 mg/dL (8.5-10.1); Chloride, Blood 100 mmol/L (98-108); Creatinine, Blood 5.49 mg/dL (0.40-1.00); Glomerular Filtration Rate 8 (60-); Glucose, Blood 114 mg/dL (70-99); Phosphorus, Blood 5.1 mg/dL (2.5-4.9); Potassium, Blood 3.4 mmol/L (3.5-5.5); Sodium, Blood 132 mmol/L (136-145)
[2018-03-19 04:15] LABS: BAND PERCENT MAN 5 % (0-8); BASOPHILS PERCENT MAN 0 % (0-2); EOSINOPHILS ABSOLUTE MAN 0.26 K/mm3 (0.00-0.68); EOSINOPHILS PERCENT MAN 5 % (0-6); LYMPHOCYTES ABSOLUTE MAN 0.31 K/mm3 (0.84-5.20); LYMPHOCYTES PERCENT MAN 6 % (21-46); METAMYELOCYTE ABSOLUTE MAN 0.15 K/mm3 (0.00-0.00); METAMYELOCYTE PERCENT MAN 3 % (0-0); MONOCYTES ABSOLUTE MAN 0.63 K/mm3 (0.16-1.47); MONOCYTES PERCENT MAN 12 % (4-13); NEUTROPHILS ABSOLUTE MAN 3.93 K/mm3 (1.96-9.15); SEG NEUTROPHILS PERCENT MAN 69 % (41-73); TOTAL CELLS COUNTED 100
[2018-03-19 05:04] LABS: PCO2 Arterial 43.7 mmHg (35-45); PO2 Arterial 57.8 mmHg (80-100); pH Blood Arterial 7.31 (7.35-7.45)
--- NOTE | 2018-03-19 05:35 | NUR ---
DR. TERRAZAS COMMUNICATION UPDATED DR. TERRAZAS ON MORNING LABS. NO NEW ORDERS AT THIS TIME. PLAN IS FOR POSSIBLE DIALYSIS TODAY.
--- NOTE | 2018-03-19 06:29 | NUR ---
SUMMARY THROUGHOUT SHIFT PT HAS REMAINED INTUBATED AND SEDATED, VENT SETTINGS UNCHANGED. THIS MORNING SEDATION TURNED OFF FOR VENTILATOR WEAN. SEE RT DOCUMENTATION. PT NOW ON PRESSURE SUPPORT 09/24/FIO2 35%. RR 12-20'S. PT ALERT, CALM AND COOPERATIVE AND ABLE TO COMMUNICATE WITH YES AND NO QUESTION. PT EDUCATED AND AGREEABLE TO PLAN OF CARE. PT REMAINS UNSEDATED SINCE WEAN TRIAL THIS MORNING. URINE OUTPUT CONTINUES TO BE DECREASED. SEE FLOWSHEET. VITALS STABLE. PT SOMEWHAT HYPERTENSIVE SINCE SEDATION HAS BEEN OFF, WILL CONTINUE TO MONITOR. PT DENIES PAIN, BUT GRIMACES WITH REPOSITIONING. DECLINES MEDICATION.
--- NOTE | 2018-03-19 09:06 | NUR ---
RECEIVED REPORT AND ASSUMED CARE OF PATIENT. SHE IS ON PRESSURE SUPPORT OF 7/5 FIO2 35% RR 20'S W/ TV OF 300-400. WHILE DOING ORAL CARE PT STARTED COUGHING BECOMING INCREASINGLY AGITATED AND BEGAN TO DESATURATE INTO THE 85-88%. RESPIRATORY RATE AND EFFORT INCREASED AND TV DECREASED. UNABLE TO TORCH SOLDERER PATIENT TO RELAX AND SLOW BREATHING. SWITCHED BACK TO AC 16/400/5/35%, PROPOFOL RESTARTED AT 25 MCG/KG/MIN.
--- NOTE | 2018-03-19 10:41 | NUR ---
DR DOOLEY IN TO SEE THE PATIENT THIS MORNING DISCUSSED CONTINUING TO MONITOR URINE OUTPUT AND DELAY STARTING DIALYSIS FOR ANOTHER 24-HOURS. DISCUSSED BLOOD PRESSURE AND CHANGED BICARB DRIP TO 75 ML/HOUR. POC IS TO GIVE BUMEX 4 MG AND CONTINUE BICARB DRIP.
[2018-03-19 11:09] LABS: Albumin, Blood 1.4 g/dL (3.4-5.0); Albumin/Globulin Ratio 0.5 (0.8-1.8); Bilirubin, Direct 0.2 mg/dL (0.0-0.3); Bilirubin, Indirect 0.2 mg/dL (0.1-0.7); Bilirubin, Total 0.4 mg/dL (0.1-1.0); Globulin, Blood 2.8 g/dL (2.2-4.0); Total Protein, Blood 4.2 g/dL (6.4-8.2)
--- NOTE | 2018-03-19 17:15 | NUR ---
PT CONTINUES TO BE SEDATED AND INTUBATED THROUGHOUT SHIFT. PROPOFOL AT 20 MCG/KG/MIN. PT IS ABLE TO OPEN EYES AND ANSWER SIMPLE YES/NO QUESTIONS WITH NODDING/SHAKING HEAD. SHE GRIMACES WITH MOVEMENT FOR CARE BUT WHEN ASKED IF SHE WOULD LIKE PAIN MEDICATION TO ADDRESS HER PAIN, SHE SHAKES HER HEAD NO. O2 SATURATION HAS TRENDED DOWN SLIGHTLY THIS EVENING AND IS TRENDING BETWEEN 89-92%, SUCTIONED BUT ONLY SCANT RETURN. WILL CONTINUE TO MONITOR. VENT SETTINGS ARE AC: 16/400/5/35% AND HER RR IS IN THE 18-20 RANGE. URINE OUTPUT IMPROVED DURING THIS SHIFT WITH 750 ML OUT TODAY. STOOL OUTPUT HAS DECREASED AND IS RECORDED AT 200 ML OUT FOR THE SHIFT. POC IS FOR ELAQUIS DOSE TO BE HELD TONIGHT FOR POSSIBLE CATH PLACEMENT ON 03/20. DR. ROMEO TO FOLLOW CASE TOMORROW AND DECIDE ABOUT POSSIBLE DIALYSIS TREATMENT.
--- NOTE | 2018-03-19 18:11 | NUR ---
ASSUMED CARE/SUMMARY ASSUMED CARE OF PT AT 1730 FROM PEDRO MAYS. PT INTUBATED, SEDATED WITH PROPOFOL AT 20MCG/KG. PT OPENS EYES TO VOICE, ABLE TO ANSWER YES/NO QUESTIONS BY NODDING HEAD AT THIS TIME. PT IN NO APPARENT DISTRESS, NODS HEAD "NO" TO QUESTIONS OF PAIN. VITAL SIGNS STABLE. NASH SOFT WRIST RESTRAINTS IN PLACE TO PROTECT LINES, ET TUBE. PT HAS RUBIN CATH AND RECTAL TUBES IN PLACE DRAINING TO GRAVITY. WILL CONTINUE TO MONITOR PT CLOSELY AND GIVE HANDOFF REPORT TO ONCOMING RN WHEN AVAILABLE.
--- NOTE | 2018-03-19 20:09 | NUR ---
ASSUMING CARE RECEIVED PT REPORT FROM PEDRO NOVOA. PT IS INTUBATED AT THIS TIME. PT VENT SETTINGS ARE AC 16, TV 400, FIO2 35%, AND PEEP 5. PT SPO2 IS MAINTAINING IN THE LOW 90'S. PT IS ON PROPOFOL FOR SEDATION AT 20MCG/KG/MIN. PT IS ABLE TO ANSWER YES/NO QUESTIONS WITH NODS. PT IS ABLE TO FOLLOW COMMANDS. PT IS RECEIVING D5 BICARB AT 75ML/HR, NS AT TKO, AND PROPOFOL. PT HAS RECETAL TUBE IN PLACE. PT IS DRAINING DARK GREEN WATERY STOOL, PT IS C-DIFF POSITIVE. PT HAS RUBIN CATH IN PLACE. PT HAS HAD BETTER URINE OUTPUT THROUGH THE DAY PER SHIFT REPORT. RUBIN IS CURRENTLY PATENT AND DRAINING CLEAR YELLOW URINE. PT HEART SOUNDS ARE BOUNDING AND A MURMUR CAN BE HEARD. ALL PT PULSES ARE 2+. PT HR IS MAINTAINING IN THE 60'S AND APPEARS TO BE SINUS. PT BP IS IN THE 120-130'S RANGE AT THIS TIME AND APPEARS TO BE STABLE. WILL HOLD PM DOSE OF ELEQUIS PER INSTRUCTIONS DUE TO POSSIBLE DIALYSIS CATH PLACEMENT IN AM. PT HAS FAMILY AT BEDSIDE AT THE TIME OF SHIFT REPORT. FAMILY UPDATED ON PT STATUS AND PLAN OF CARE. ASSUMING CARE OF PT AT THE TIME OF SHIFT REPORT. WILL CONTINUE TO MONITOR PT.
[2018-03-20 03:30] LABS: BASOPHILS ABSOLUTE AUTO 0.02 K/mm3 (0.00-0.23); BASOPHILS PERCENT AUTO 0 % (0-2); EOSINOPHILS ABSOLUTE AUTO 0.28 K/mm3 (0.00-0.68); EOSINOPHILS PERCENT AUTO 4 % (0-6); Hematocrit 23.8 % (33.0-51.0); IMMATURE GRAN ABSOLUTE AUTO 0.53 K/mm3 (0.00-0.10); IMMATURE GRAN PERCENT AUTO 8 % (0-1); LYMPHOCYTES PERCENT AUTO 5 % (21-46); MONOCYTES ABSOLUTE AUTO 0.55 K/mm3 (0.16-1.47); MONOCYTES PERCENT AUTO 8 % (4-13); Mean Corpuscular HGB 33.2 pg (26.0-34.0); Mean Corpuscular HGB Conc 33.6 g/dL (31.5-36.5); Mean Corpuscular Volume 99 fL (80-100); Mean Platelet Volume 11.8 fL (9.1-12.4); NEUTROPHILS ABSOLUTE AUTO 4.85 K/mm3 (1.96-9.15); NEUTROPHILS PERCENT AUTO 74 % (41-73); Platelet Count 88 K/mm3 (150-400); RDW Coefficient Variation 13.5 % (11.7-14.2); RDW Standard Deviation 48.8 fL (35.1-46.3); Red Blood Cell Count 2.41 M/mm3 (3.80-5.20); White Blood Cell Count 6.53 K/mm3 (4.00-11.30)
[2018-03-20 03:44] LABS: Albumin, Blood 1.3 g/dL (3.4-5.0); Anion Gap 12 mmol/L (6-16); Blood Urea Nitrogen 94 mg/dL (8-24); Bun/Creatinine Ratio 17.9 (12.0-20.0); CO2, Blood 26 mmol/L (21-32); Calcium, Blood 8.9 mg/dL (8.5-10.1); Chloride, Blood 95 mmol/L (98-108); Creatinine, Blood 5.24 mg/dL (0.40-1.00); Glomerular Filtration Rate 8 (60-); Glucose, Blood 115 mg/dL (70-99); Magnesium, Blood 1.7 mg/dL (1.6-2.4); Phosphorus, Blood 5.2 mg/dL (2.5-4.9); Potassium, Blood 3.5 mmol/L (3.5-5.5); Sodium, Blood 133 mmol/L (136-145)
[2018-03-20 03:47] LABS: BAND PERCENT MAN 5 % (0-8); BASOPHILS ABSOLUTE MAN 0.06 K/mm3 (0.00-0.23); BASOPHILS PERCENT MAN 1 % (0-2); EOSINOPHILS ABSOLUTE MAN 0.45 K/mm3 (0.00-0.68); EOSINOPHILS PERCENT MAN 7 % (0-6); LYMPHOCYTES ABSOLUTE MAN 0.52 K/mm3 (0.84-5.20); LYMPHOCYTES PERCENT MAN 8 % (21-46); METAMYELOCYTE ABSOLUTE MAN 0.19 K/mm3 (0.00-0.00); METAMYELOCYTE PERCENT MAN 3 % (0-0); MONOCYTES ABSOLUTE MAN 0.45 K/mm3 (0.16-1.47); MONOCYTES PERCENT MAN 7 % (4-13); NEUTROPHILS ABSOLUTE MAN 4.83 K/mm3 (1.96-9.15); SEG NEUTROPHILS PERCENT MAN 69 % (41-73); TOTAL CELLS COUNTED 100
--- NOTE | 2018-03-20 05:06 | NUR ---
SEDATION VACATION STARTED AT THIS TIME
--- NOTE | 2018-03-20 05:50 | NUR ---
SHIFT SUMMARY NOTE PT REMAINS INTUBATED AT THIS TIME. PT HAS REMAINS EASILY AROUSABLE THROUGH THE NIGHT. PT ABLE TO ANSWER QUESTIONS WITH NODS AND FOLLOW COMMANDS. PT IS CURRENTLY ON SPONTANIOUS AFTER WEAN TRIAL. PT VENT SETTINGS ARE 10/5 WITH 40% FIO2.PT SPO2 IS IN THE LOW 90'S. VENT SETTINGS PRIOR TO BEING CHANGED TO PRESSURE SUPPORT WERE AC 16, TV 400, FIO2 35% AND PEEP 5. PROPOFOL IS ON STANDBY AT THIS TIME DUE TO PT REMAINING ON SPONTANIOUS. PT HAS HAD APPROX 1000ML OF URINE OUTPUT OVERNIGHT. PT URINE IS CLEAR AND YELLOW. PT HAD APPROX 200ML OF STOOL OUTPUT. STOOL REMAINS DARK GREEN AND LIQUIDY. PT REMAINS ON D5 BICARB AT 75/HR AND NS AT TKO. PT CONTINUES TO RECEIVE TUBE FEEDING OF NEPHRO SOLUTION AT 35ML/HR. PT HR HAS REMAINED STABLE IN THE 60'S THROUGHOUT THE NIGHT. PT HAS A LOW GRADE TEMP IN THE 99.0 TO 99.7 RANGE. PT BP BECAME ELEVATED TOWARDS THE END OF THE SHIFT WITH TURNS, X-RAY, AND WEAN TRIAL. PT PROVIDED 10MG HYDRALAZINE WITH SOME MINOR EFFECT. PT CONTINUES TO HAVE COPIOUS ORAL SECRETIONS. PT SPUTUM HAS BEEN NOTED TO BECOME BLOOD TINGED AT THE END OF THE SHIFT. WILL REPORT OFF TO [facility] DAY SHIFT NURSE
[2018-03-20 05:51] LABS: PCO2 Arterial 41.1 mmHg (35-45); pH Blood Arterial 7.43 (7.35-7.45)
--- NOTE | 2018-03-20 06:44 | NUR ---
VENT SETTINGS CHANGE AT APPROX 0630 PT BEGAN TO DESATURATE AND HAVE LOW TIDAL VOLUMES. PT BP ALSO BECAME ELEVATED. PT WAS PLACED BACK ON AC 16, TV 400, FIO2 40% AND PEEP 5. PROPOFOL WAS RESUMED AT 30MCG/KG/MIN AND 25MCG WAS PROVIDED. PT APPEARED TO BECOME LESS DISTRESSED AND BP DROPPED TO THE 160'S. WILL REPORT OFF TO ONCOMING DAY SHIFT NURSE.
--- NOTE | 2018-03-20 08:28 | NUR ---
ASSUMED CARE ASSUMED CARE OF PT AT 0700. REPORT RECEIVED FROM PEDRO WAITE. PT INTUBATED AND SEDATED. PT OPENS EYES TO VOICE, ABLE TO NOD HEAD YES/NO TO SOME QUESTIONS. PT IN NO APPARENT DISTRESS AT THIS TIME. VENT SETTINGS AC 16, TV 400, PEEP 5, FIO2 35%, ACTUAL RR 16 AT THIS TIME. MONITOR SHOWS SINUS RHTYHM WITH HR 60'S, VITAL SIGNS STABLE. PT HAS DOBHOFF IN PLACE WITH NEPRO TF AT GOAL OF 35ML/HR. PT GRIMACES TO ABDOMINAL PALPATION, ABDOMEN SOMEWHAT FIRM, BOWEL TONES ACTIVE X4 QUADRANTS. PT HAS RECTAL TUBE IN PLACE DRAINING GREEN/BROWN LIQUID STOOL TO GRAVITY. PT HAS TEMP RUBIN CATHETER IN PLACE, DRAINING CLEAR YELLOW URINE TO GRAVITY. PT RECEIVED IV BUMEX THIS AM PER ORDERS. PT HAS PICC TO RINKU WITH NS TKO FOR ABX, BICARB GTT AT 50ML/HR, AND PROPOFOL AT 30MCG/KG. PT HAS NASH SOFT WRIST RESTRAINTS IN PLACE TO PROTECT LINES, TUBES. POLLO HELD THIS AM FOR POSSIBLE DIALYSIS CATH PLACEMENT - DR ROMEO HAS YET TO SEE PT THIS AM. WILL CONTINUE TO MONITOR PT CLOSELY.
--- NOTE | 2018-03-20 09:31 | NUR ---
DR. OUSMANE ROMEO IN TO ASSESS PT. ORDERS RECEIVED FOR ALBUMIN TO BE GIVEN BID PRIOR TO BUMEX. DR. ROMEO STATES "THEY CAN HAVE DIALYSIS IF THEY WANT IT". DID NOT PROVIDE ANY FURTHER CLARIFICATION ON THIS. WILL DISCUSS WITH DR. TERRAZAS.
--- NOTE | 2018-03-20 10:30 | NUR ---
VENT CHANGES/RECLINER/DR. MK TERRAZAS ROUNDED ON PT. DISCUSSED PLAN OF CARE - WOULD HOLD OFF ON DIALYSIS AT THIS POINT, GET PT UP TO RECLINER AND PLAN FOR PRESSURE SUPPORT TRIALS FOR RESPIRATORY EXERCISE. PROPOFOL PLACED ON STANDBY. WITH ASSIST OF CLINIC PHYSICIAN DIRECTOR, PT UP TO RECLINER WITH CEILING LIFT. RT TO ROOM TO PLACE PT ON PRESSURE SUPPORT - CURRENT SETTINGS PS 12, PEEP 5, FIO2 35%. PT'S RR 18, TIDAL VOLUMES 350-450 RANGE, SPO2 >90%. WILL CONTINUE TO MONITOR PT CLOSELY. NASH SOFT WRIST RESTRAINS REMAIN IN PLACE TO PREVENT INADVERTENT EXTUBATION.
--- NOTE | 2018-03-20 11:00 | NUR ---
24 HOUR URINE COLLECTION STARTED.
--- NOTE | 2018-03-20 16:11 | NUR ---
DOBHOFF/OG/VENT CHANGES WHILE IN TO ADMINISTER 1400 MEDS DOWN DOBHOFF, DOBHOFF NOTED TO NO LONGER BE PATENT. MULTIPLE ATTEMPTS WERE MADE TO FLUSH TUBE AND TO ASPIRATE CONTENTS WITHOUT SUCCESS. NOTIFIED DR. TRERAZAS. ORDERS RECEIVED TO REMOVE DOBHOFF AND REPLACE WITH AN OG TUBE. DR. TERRAZAS DOES STATE PT WILL LIKELY NEED A DOBHOFF UPON EXTUBATION BUT TO USE AN OG TUBE FOR NOW. PT WILL NEED TO BE RE-SEDATED FOR PASSAGE OF OG TUBE. RT NOTIFIED. PT BACK TO BED FROM RECLINER WITH ASSIST OF CEILING LIFT. PT PLACED BACK ON AC VENT SETTINGS OF AC 16, TV 400, PEEP 5, FIO2 35%. PROPOFOL RE-STARTED AT 20 MCG/KG INITIALLY. PT REMAINS VERY AWAKE AFTER APPROX 10 MIN. PT GIVEN 25MCG FENTANYL PUSH FOR SEDATION ADJUNCT WITHOUT EFFECT. PROPOFOL TITRATED UP TO EVENTUAL RATE OF 40MCG/KG IN ORDER TO ACHIEVE ADEQUATE SEDATION. OG TUBE PLACED AT THIS TIME. PLACEMENT VERIFIED VIA AUSCULTATION OVER THE STOMACH AND ASPIRATION OF FORMULA. PER DR. TERRAZAS, LUIZAY TO RE-START TUBE FEEDING AT THIS TIME - NEPRO RESUMED AT RATE OF 35ML/HR. PROPOFOL TITRATED DOWN TO CURRENT RATE OF 25MCG/KG. PT APPEARS TO BE RESTING COMFORTABLY AT THIS TIME. WILL CONTINUE TO MONITOR.
--- NOTE | 2018-03-20 20:20 | NUR ---
ASSUMING CARE RECEIVED PT REPORT FROM PEDRO THOMAS. PT IS INTUBATED AT THIS TIME. PT VENT SETTINGS ARE AC 16, TV 400, FIO2 35%, AND PEEP 5. PT SPO2 IS MAINTAINING IN THE LOW 90'S AT THIS TIME. PT IS RECEIVING PROPOFOL FOR SEDATION AT 25MCG/KG/MIN AT THE TIME CARE WAS ASSUMED FOR SEDATION. PT IS AROUSABLE AND ABLE TO FOLLOW COMMANDS. PT IS ABLE TO RESPOND TO QUESTIONS OCCASIONALLY WITH NODS. IT IS DIFFICULT TO ASSESS PT'S ORIENTATION AT THIS TIME. PT IS RESTRAINED IN BILATERAL SOFT WRIST RESTRAINTS FOR PREVENTION OF SELF EXTUBATION. PT WILL PULL ON RESTRAINTS WITH CARE. PT HAS A TEMP RUBIN CATH IN [facility] CURRENTLY PATENT AND DRAINING CLEAR YELLOW URINE AT THIS TIME. PT IS ON A 24 HOUR URINE COLLECTION AT THIS TIME. TO BE COMPLETE AT 1100 ON 03/21/18. PT HAS A LOW GRADE TEMP AT APPROX 99.1 PT HR IS MAINTAINING AT THIS TIME IN THE 60'S WITH BP IN THE 120'S. ASSUMED CARE OF PT AT THE TIME OF SHIFT REPORT. WILL CONTINUE TO MONITOR PT.
[2018-03-21 03:37] LABS: BASOPHILS ABSOLUTE AUTO 0.02 K/mm3 (0.00-0.23); BASOPHILS PERCENT AUTO 0 % (0-2); EOSINOPHILS ABSOLUTE AUTO 0.21 K/mm3 (0.00-0.68); EOSINOPHILS PERCENT AUTO 3 % (0-6); Hematocrit 20.1 % (33.0-51.0); Hemoglobin 6.8 g/dL (11.5-16.0); IMMATURE GRAN ABSOLUTE AUTO 0.51 K/mm3 (0.00-0.10); IMMATURE GRAN PERCENT AUTO 7 % (0-1); LYMPHOCYTES ABSOLUTE AUTO 0.29 K/mm3 (0.84-5.20); LYMPHOCYTES PERCENT AUTO 4 % (21-46); MONOCYTES ABSOLUTE AUTO 0.45 K/mm3 (0.16-1.47); MONOCYTES PERCENT AUTO 6 % (4-13); Mean Corpuscular HGB 32.9 pg (26.0-34.0); Mean Corpuscular HGB Conc 33.8 g/dL (31.5-36.5); Mean Corpuscular Volume 97 fL (80-100); NEUTROPHILS ABSOLUTE AUTO 5.76 K/mm3 (1.96-9.15); NEUTROPHILS PERCENT AUTO 80 % (41-73); Platelet Count 121 K/mm3 (150-400); RDW Coefficient Variation 13.3 % (11.7-14.2); RDW Standard Deviation 47.5 fL (35.1-46.3); Red Blood Cell Count 2.07 M/mm3 (3.80-5.20); White Blood Cell Count 7.24 K/mm3 (4.00-11.30)
[2018-03-21 04:03] LABS: BAND PERCENT MAN 5 % (0-8); BASOPHILS PERCENT MAN 0 % (0-2); EOSINOPHILS ABSOLUTE MAN 0.21 K/mm3 (0.00-0.68); EOSINOPHILS PERCENT MAN 3 % (0-6); LYMPHOCYTES ABSOLUTE MAN 0.21 K/mm3 (0.84-5.20); LYMPHOCYTES PERCENT MAN 3 % (21-46); MONOCYTES ABSOLUTE MAN 0.43 K/mm3 (0.16-1.47); MONOCYTES PERCENT MAN 6 % (4-13); NEUTROPHILS ABSOLUTE MAN 6.37 K/mm3 (1.96-9.15); SEG NEUTROPHILS PERCENT MAN 83 % (41-73); TOTAL CELLS COUNTED 100
[2018-03-21 04:05] LABS: Magnesium, Blood 1.8 mg/dL (1.6-2.4)
[2018-03-21 04:18] LABS: Albumin, Blood 1.4 g/dL (3.4-5.0); Anion Gap 12 mmol/L (6-16); Blood Urea Nitrogen 94 mg/dL (8-24); Bun/Creatinine Ratio 18.7 (12.0-20.0); CO2, Blood 28 mmol/L (21-32); Calcium, Blood 8.4 mg/dL (8.5-10.1); Chloride, Blood 93 mmol/L (98-108); Creatinine, Blood 5.04 mg/dL (0.40-1.00); Glomerular Filtration Rate 9 (60-); Glucose, Blood 105 mg/dL (70-99); Phosphorus, Blood 5.7 mg/dL (2.5-4.9); Potassium, Blood 3.1 mmol/L (3.5-5.5); Sodium, Blood 133 mmol/L (136-145)
--- NOTE | 2018-03-21 04:50 | NUR ---
SEDATION VACATION SEDATION VACATION STARTED AT APPROX 0440. WILL CONTINUE TO MONITOR PT.
[2018-03-21 05:19] LABS: PCO2 Arterial 44.4 mmHg (35-45); PO2 Arterial 53.6 mmHg (80-100); pH Blood Arterial 7.45 (7.35-7.45)
--- NOTE | 2018-03-21 07:34 | NUR ---
SHIFT SUMMARY NOTE PT REMAINS INTUBATED AT THIS TIME. VENT SETTINGS AT THIS TIME ARE AC 16 TV 400, FIO2 40% AND PEEP 5. PT WAS GIVEN A WEAN TRIAL THIS AM. THROUGH WEAN TRIAL PT BECAME AGITATED AND HYPERTENSIVE. PT WAS PLACED BACK ON PREVIOUS SETTINGS AND PROPOFOL WAS RESTRTED WITH SOME EFFECT. DR ROMEO WAS CALLED WITH MORNING LAB RESULTS. ORDERS RECEIVED TO DC BICARB GTT, PROVIDE 30MEQ KCL, ADMINISTER 1 UNIT PRBC AND PROVIDE 4MG B[address] THROUGH BLOOD ADMINISTRATION. ORDERS ENTERED RECEIVED, KCL PROVIED AND BICARB DC'D. AWAITING TYPE AND CROSS LAB AT THIS TIME PRIOR TO BLOOD ADMINISTRATION. PT HAS HAD INCREASED URINE OUTPUT OVERNIGHT WITH APPROX 950ML. URINE IS CLEAR AND YELLOW AT THIS TIME. PT REMAINS ON 24HR URINE COLLECTION TO BE COMPLETE AT 1100 THIS AM. PT CONTINUES TO HAVE RECTAL TUBE IN PLACE, WITH APPROX 300ML STOOL OUTPUT OVERNIGHT. STOOL REMAINS DRAK GREEN AND LIQUIDY. PT HAS REMAINED ABLE TO FOLLOW COMMANDS AND NOD TO QUESTIONS THROUGH THE NIGHT. AT THIS TIME PT IS RECEIVING PROPOFOL AT 35MCG/KG/MIN, NS AT TKO AND KCL. PT REMAINS ON TF OF NEPHRO SOLUTION AT GOAL RATE OF 35ML/HR. PT HAS HAD MINIMAL RESIDUALS OVERNIGHT. WILL REPORT OFF TO [facility] DAY SHIFT NURSE.
--- NOTE | 2018-03-21 10:42 | NUR ---
PT LIGHTLY SEDATED AND EASILY AROUSABLE. PT VS NOTED. KCL INFUSING AND WILL OBTAIN LAB AND CALL. I/O NOTED WITH 24 HR URINE TO COMPLETE AT 1100.
[2018-03-21 11:46] LABS: Triglycerides 76 mg/dL (30-160)
--- NOTE | 2018-03-21 15:49 | NUR ---
pt sedation vacation noted with folowing of commands and nodding of head. returned to light 25mcg sedation and will follow. toleratig chair at this point and resting w/o distress.
--- NOTE | 2018-03-21 15:55 | NUR ---
PT PLACED ON PS 12/5 40%. WILL MONITOR FOR FATIGUE AND TOLERANCE.
--- NOTE | 2018-03-21 16:30 | NUR ---
PT REMAINS CALM AND FEELILNG LIKE HE COULD GO TO SLEEP. WILL FACILITATE THIS AND TURN LIGHTS OUT. TREMORS ARE IMPORVED IN LAST 30-45 MIN BUT NOT GONE.
--- NOTE | 2018-03-21 16:34 | NUR ---
PT CONT. TO TOLERATE PS 12/5 WITH R 16-18 CURRENTLY AND SATS 95%.
--- NOTE | 2018-03-21 18:07 | NUR ---
PT REMAINS UP IN CHAIR AND ONLY ON 20MCG OF PROPOFOL AND CALM LIGHTLY SEDATED. VS HAVE BEEN STABLE. I/O NOTED. LABS CALLED TO DR ROMEO WITH NEW ORDERS NOTED. DR ROMEO REQUESTING 3RD DOSE OF BUMEX GIVEN 2100 TO STAGER DOSES BETTER.
--- NOTE | 2018-03-21 21:14 | NUR ---
ASSUMING CARE RECEIVED PT REPORT FROM PEDRO CADET. PT REMAINS INTUBATED AT THIS TIME. PT IS ON PRESSURE SUPPORT OF 12/5 FIO2 40% AT THE ITME CARE WAS ASSUMED. PT SPO2 IS MAINTAINING IN THE LOW TO MID 90'S. PT IS SITTING UP IN CHAIR AT THE TIME OF SHIFT REPORT. PT IS RECEIVING PROPOFOL FOR SEDATION AT 20MCG/KG/MIN. PT IS EASILY AROUSABLE AND IS ABLE TO FOLLOW COMMANDS AND NOD IN RESPONSE TO QUESTIONS. PT REMAINS RESTRAINED AT THIS TIME IN BILATERAL SOFT WRIST RESTRAINTS FOR PREVENTION OF ACCIDENTAL SELF EXTUBATION. PT WILL PULL AT RESTRAINTS WITH ALL CARES. PT IS RECEIVING NS AT TKO AND IS RECEIVING A BAG OF 30MEQ KCL. KCL INFUSION COMPLETE SHORTLY AFTER CARE ASSUMED. PT PROVIDED 1800 DOSE OF BUMEX AT [address] PINEDA INSTRUCTIONS. PT TRANSFERED TO BED FROM CHAIR AND SWITCHED TO AC AT APPROX 2030. PT VENT SETTINGS AT THIS TIME ARE AC 16, TV 400, FIO2 40% AND PEEP 5. PT HAS RUBIN TEMP PROBE IN PLACE AT THIS TIME, CURRENTLY PATENT AND DRAINING CLEAR YELLOW URINE. PT HAS A TEMP OF APPROX 99.0 AT THIS TIME. PT HAS RECTAL TUBE IN PLACE. PT STOOL IS DARK GREEN AND LIQUIDY AT THIS TIME. PT IS RECEIVING TF OF NEPHRO SOLUTION THROUGH OG TUBE AT GOAL RATE OF 35. PT HAS HAD MINIMAL RESIDUALS THUS FAR. ASSUMED CARE OF PT AT THE TIME OF SHIFT REPORT. WILL CONTINUE TO MONITOR PT.
[2018-03-22 03:33] LABS: BASOPHILS ABSOLUTE AUTO 0.03 K/mm3 (0.00-0.23); BASOPHILS PERCENT AUTO 0 % (0-2); EOSINOPHILS ABSOLUTE AUTO 0.19 K/mm3 (0.00-0.68); EOSINOPHILS PERCENT AUTO 2 % (0-6); Hematocrit 25.4 % (33.0-51.0); Hemoglobin 8.5 g/dL (11.5-16.0); IMMATURE GRAN ABSOLUTE AUTO 0.69 K/mm3 (0.00-0.10); IMMATURE GRAN PERCENT AUTO 8 % (0-1); LYMPHOCYTES ABSOLUTE AUTO 0.24 K/mm3 (0.84-5.20); LYMPHOCYTES PERCENT AUTO 3 % (21-46); MONOCYTES ABSOLUTE AUTO 0.51 K/mm3 (0.16-1.47); MONOCYTES PERCENT AUTO 6 % (4-13); Mean Corpuscular HGB 32.7 pg (26.0-34.0); Mean Corpuscular HGB Conc 33.5 g/dL (31.5-36.5); Mean Corpuscular Volume 98 fL (80-100); Mean Platelet Volume 11.3 fL (9.1-12.4); NEUTROPHILS PERCENT AUTO 82 % (41-73); Platelet Count 156 K/mm3 (150-400); RDW Coefficient Variation 14.2 % (11.7-14.2); RDW Standard Deviation 50.4 fL (35.1-46.3); White Blood Cell Count 9.06 K/mm3 (4.00-11.30)
[2018-03-22 03:50] LABS: Albumin, Blood 1.7 g/dL (3.4-5.0); Anion Gap 11 mmol/L (6-16); Blood Urea Nitrogen 95 mg/dL (8-24); Bun/Creatinine Ratio 19.9 (12.0-20.0); CO2, Blood 29 mmol/L (21-32); Calcium, Blood 8.9 mg/dL (8.5-10.1); Chloride, Blood 95 mmol/L (98-108); Creatinine, Blood 4.78 mg/dL (0.40-1.00); Glomerular Filtration Rate 9 (60-); Glucose, Blood 95 mg/dL (70-99); Magnesium, Blood 1.7 mg/dL (1.6-2.4); Phosphorus, Blood 5.5 mg/dL (2.5-4.9); Potassium, Blood 3.5 mmol/L (3.5-5.5); Sodium, Blood 135 mmol/L (136-145)
[2018-03-22 03:53] LABS: BAND PERCENT MAN 4 % (0-8); BASOPHILS PERCENT MAN 0 % (0-2); EOSINOPHILS ABSOLUTE MAN 0.09 K/mm3 (0.00-0.68); EOSINOPHILS PERCENT MAN 1 % (0-6); LYMPHOCYTES ABSOLUTE MAN 0.18 K/mm3 (0.84-5.20); LYMPHOCYTES PERCENT MAN 2 % (21-46); MONOCYTES ABSOLUTE MAN 0.63 K/mm3 (0.16-1.47); MONOCYTES PERCENT MAN 7 % (4-13); NEUTROPHILS ABSOLUTE MAN 8.15 K/mm3 (1.96-9.15); SEG NEUTROPHILS PERCENT MAN 86 % (41-73); TOTAL CELLS COUNTED 100
[2018-03-22 04:56] LABS: PO2 Arterial 56.1 mmHg (80-100); pH Blood Arterial 7.47 (7.35-7.45)
--- NOTE | 2018-03-22 05:07 | NUR ---
SHIFT SUMMARY NOTE PT REMAINS INTUBATED AT THIS TIME. PT VENT SETTINGS ARE AC 16, TV 400, FIO2 45% AND PEEP 5. PT WAS NOT WEANED THIS AM DUE TO ELEVATED BP IN THE 200'S AT APPROX 0430. PT WAS PROVIDED FENTANYL AND HYDRALAZINE FOR ELEVATED PT. ADMINISTRATION OF FENTANYL AND HYDRALAZINE DECREASED BP TO THE 150'S PT REMAINS ON PROPOFOL AT THIS TIME FOR SEDATION. PROPOFOL IS CURRENTLY RUNNING AT 20MCG/KG/MIN. PROPOFOL HAS HAD TO BE TITRATED UP AT TIMES FOR INCREASED AGITATION. PT HAS REMAINED EASILY AROUSABLE THROUGH THE NIGHT. PT HAS HAD INCREASED URINE OUTPUT OVERNIGHT. PT HAD APPROX 1700ML OF URINE FROM RUBIN CATH. URINE HAS BECOME NARINDER COLORED, THOUGH IT REMAINS CLEAR AT THIS TIME. PT HAD APPROX 450ML OF STOOL FROM RECTAL TUBE. STOOL REMAINS DARK GREEN AND LIQUIDY. PT REMAINS ON TUBE FEED AT GOAL RATE OF 35ML/HR. PT HAS HAD MINIMAL RESIDUALS FROM OG TUBE. PT HR HAS MAINTAINED IN THE 60'S THROUGH THE NIGHT. PT HAS BEEN IN NSR. PT BP HAS BEEN IN THE 160'S THROUGH MUCH OF THE NIGHT. PROPOFOL TITRATED FOR AGITATION AND BP. HYDRALAZINE AND FENTANYL HAVE BEEN PROVIDED X2 TIMES OVERNIGHT FOR BP AND AGITATION RESPECTIVLEY. PT HAS HAD A LOW GRADE TEMP OVERNIGHT RANGING FROM 99.0 TO 99.7. REFER TO EMAR FOR MEDICATION ADMINISTRATION DETAILS, REFER TO VITAL SIGN FLOW SHEET FOR DETAILS. WILL REPORT [facility].
[2018-03-22 06:07] LABS: HAPTOGLOBIN 186 mg/dL (34-200)
--- NOTE | 2018-03-22 09:53 | NUR ---
PT WAS AGITATED WITH SIMPLE CARE AND RR ELEVATED AND BP UP. PT GIVEN FENT. PRN AND PROPOFOL UP TO 25MCG AND THEN DOWN TO 20MCG. DR MCDOWELL IN AND CHANGED TO T.C AND PT DOING WELL W/O ANY STIMULATION OR AGITATION. WILL FOLLOW PT STATUS.
--- NOTE | 2018-03-22 10:04 | NUR ---
PT IS IN SBT AND WILL NOT MOVE OR STIMULATE AT THIS TIME.
--- NOTE | 2018-03-22 11:38 | NUR ---
PT EXTUBATED AND OG REMOVED AT 1040 W/O DISTRESS. PT MOUTH BREATHING AND O2 INEFECTIVE VIA NOSE AND CHANGED TO MASK FOR ADIQUATE SATS. PT SHOWING SOME ELEVATED BP WITH ANXIETY. NOT SPEAKING AT THIS TIME. WILL LEAVE RESTRAINTS ON FOR PT O2 DELIVERY AND SAFETY.
--- NOTE | 2018-03-22 16:48 | NUR ---
pt place on bipap due to declining sats and inc. crackles sounds in bases of lungs. pt rr rate and wob is not elevated but sats lower mykel 88-89 range and thus changed to bipap 10/5 at 55%. daughter Lindsey in to visit after called with status report and extubation status. no new directions at this point from family to change code status.
--- NOTE | 2018-03-22 18:48 | NUR ---
PT RR, TV, SATS ON BIPAP 10/ AT 55% ARE VERY GOOD NOTED. PT NOW SLEEPING AND CALM AND RESTRAITS REMOVED 1700. I/O NOTED, VSS, AND RESTING CALMLY.
--- NOTE | 2018-03-22 19:15 | NUR ---
ASSUMED CARE OF PT FROM PEDRO CADET. PT ON BIPAP 10/5 FIO2 55%. PT IS RESTING COMFORTABLE AND AROUSABLE TO VERBAL STIMULI. PT IS UNABLE TO FOLLOW COMMANDS AT THIS MOMENT. VSS. TEMP RUBIN PATENT AND DRAINING. RECTAL TUBE PATENT. SEE FULL SHIFT ASSESSMENT.
--- NOTE | 2018-03-23 00:37 | NUR ---
MIDSHIFT ASSESSMENT. PT TOLERATING BIPAP WELL. PT HAS BEEN SLEEPING THROUGHOUT THE SHIFT BUT IS AROUSABLE TO VERBAL STIMULUS. PT DOES NOT FOLLOW COMMANDS BUT WAS ABLE TO SHAKE HER HEAD YES WHEN ASKED IF SHE WAS FEELING OK, AND SHOOK HER HEAD NO WHEN ASKED IF SHE WAS IN PAIN. PT GROANED WHILE BEING REPOSITIONED BUT DENIES PAIN WHEN ASKED.
[2018-03-23 04:32] LABS: PCO2 Arterial 53.5 mmHg (35-45); PO2 Arterial 56.7 mmHg (80-100); pH Blood Arterial 7.37 (7.35-7.45)
[2018-03-23 04:44] LABS: Hematocrit 27.9 % (33.0-51.0); Mean Corpuscular HGB 32.4 pg (26.0-34.0); Mean Corpuscular HGB Conc 32.3 g/dL (31.5-36.5); Mean Corpuscular Volume 100 fL (80-100); Platelet Count 204 K/mm3 (150-400); RDW Coefficient Variation 14.3 % (11.7-14.2); RDW Standard Deviation 52.3 fL (35.1-46.3); Red Blood Cell Count 2.78 M/mm3 (3.80-5.20); White Blood Cell Count 9.94 K/mm3 (4.00-11.30)
[2018-03-23 04:57] LABS: Albumin, Blood 2.1 g/dL (3.4-5.0); Anion Gap 11 mmol/L (6-16); Blood Urea Nitrogen 96 mg/dL (8-24); Bun/Creatinine Ratio 20.8 (12.0-20.0); CO2, Blood 30 mmol/L (21-32); Calcium, Blood 8.9 mg/dL (8.5-10.1); Chloride, Blood 97 mmol/L (98-108); Creatinine, Blood 4.61 mg/dL (0.40-1.00); Glomerular Filtration Rate 10 (60-); Glucose, Blood 77 mg/dL (70-99); Magnesium, Blood 1.9 mg/dL (1.6-2.4); Potassium, Blood 3.6 mmol/L (3.5-5.5); Sodium, Blood 138 mmol/L (136-145)
[2018-03-23 05:24] LABS: BAND PERCENT MAN 3 % (0-8); BASOPHILS PERCENT MAN 0 % (0-2); EOSINOPHILS ABSOLUTE MAN 0.19 K/mm3 (0.00-0.68); EOSINOPHILS PERCENT MAN 2 % (0-6); LYMPHOCYTES ABSOLUTE MAN 0.19 K/mm3 (0.84-5.20); LYMPHOCYTES PERCENT MAN 2 % (21-46); MONOCYTES ABSOLUTE MAN 0.39 K/mm3 (0.16-1.47); MONOCYTES PERCENT MAN 4 % (4-13); NEUTROPHILS ABSOLUTE MAN 9.14 K/mm3 (1.96-9.15); SEG NEUTROPHILS PERCENT MAN 89 % (41-73); TOTAL CELLS COUNTED 100
--- NOTE | 2018-03-23 06:08 | NUR ---
SHIFT SUMMARY PT TOLERATED BIPAP ALL NIGHT AND MAINTAINED SAT IN THE MID 90'S UNTIL AROUND 0500 WHEN SATS FELL TO THE MID 80'S. BIPAP SETTINGS CHANGED TO 10/6 65% AND PT'S SATS HAVE BEEN IN THE MID 90'S. RHONCHI THROUGHOUT WITH CRACKLES AT THE BASES. PT STILL UNABLE TO FOLLOW COMMANDS AND FAILS TO MOVE HER EXTREMETIES BUT IS ABLE TO NOD YES/NO IN RESPONSE TO QUESTIONS. PT SQUEEZES EYES SHUT IN RESPONSE TO PUTTING EYE DROPS IN AND FIRMLY CLENCHES JAW WHEN ATTEMPTING ORAL CARE. PT DOES EVENTUALLY OPEN HER MOUTH FOR ORAL CARE FOR SHORT MOMENTS. TEMP RUBIN IS PATENT AND DRAINING CLEAR YELLOW URINE (1350 OUT THIS SHIFT). RECTAL TUBE PATENT, NO DRAINAGE NOTED THIS SHIFT. PT HAS BEEN AFEBRILE AND HAS HAD NO OTHER ACUTE CHANGES OVERNIGHT. HELD ALL OVERNIGHT PO MEDS PER DR MCDOWELL'S REQUEST. WILL REPORT TO DAYSHIFT NURSE.
--- NOTE | 2018-03-23 09:03 | NUR ---
CARE ASSUMED CARE AND REPORT ASSUMED FROM DIVINE VASQUEZ. PT SLEEPING BUT EASILY AROUSABLE. WHEN AWAKE, PT VERY SLOW TO RESPOND BY SHAKING HEAD YES/NO. FLAT AND WITHDRAWN AFFECT. DENIES PAIN WHEN ASKED. NSR 70-80S. BP STABLE. NS INFUSING TKO. AFEBRILE. LUNG SOUNDS RHONCHI WITH CRACKLES IN BASES. EASILY DESATURATES WHEN NOT ON BIPAP. CURRENTLY WEARING BIPAP 12/, FIO2 65%. RECTAL TUBE SECURED. RUBIN CATH SECURED AND PATENT. ATTEMPTED TO INSERT DOPHOFF TUBE MULITILE TIMES BUT UNSUCCESSFUL PT WAS COUGHING AND REFUSED AND TO COOPERATE. WILL ATTEMPT AGAIN. WILL CONTINUE TO MONITOR.
--- NOTE | 2018-03-23 10:16 | NUR ---
DOPHOFF INSERTED FENTANYL 25 MCG IVP ADMINISTERED FOR PAIN CONTROL AND ATTEMPT TO RELAX PT FOR DOPHOFF INSERTION. DOPHOFF INSERTED AND SECURED AT 65 CM. PLACEMENT CONFIRMED BY CXR AND MD MCDOWELL. AWAITING NURTITION CONSULT. TOLERATED ADMINSTRATION OF AM MEDS. PT BEDSIDE WORKING WITH PT. VSS. WILL CONTINUE TO MONITOR.
--- NOTE | 2018-03-23 12:07 | NUR ---
REASSESSMENT PT REMAINS SITTING UP IN CHAIR. WORKED WITH PT THIS AM; PT STATES PT IS VERY WEAK AND PARTICIPATES VERY MINIMAL. DENIES PAIN WHEN ASKED. VSS. NSR 70-80S. AFEBRILE 98.5. PIVOT 1.5 TUBE FEEDS STARTED AT THIS TIME AT 20 ML/HR PER ORDER. NS INFUSING AT TKO. REMAINS ON BIPAP /, FIO2 65%. RECEIVED CPT BY RT. WILL CONTINUE TO MONITOR.
--- NOTE | 2018-03-23 15:55 | NUR ---
REASSESSMENT LUNG SOUNDS REMAIN CRACKLY BUT IMPROVED SINCE PRIOR ASSESSMENT. VSS. NSR, HR 70-80S. BP STABLE. AFEBRILE. RECEIVED BEDBATH AND ENTIRE LINEN CHANGE. PT REFUSES TO TURN AND COMPLAINS WITH ANY MOVEMENT. RECEIVING CPT PERCUSSION BY RT AT THIS TIME. DENIES PAIN WHEN ASKED. TOLERATING TF THROUGH DOPHOFF TUBE. REMAINS ON BIPAP 12/8, FIO2 65%. WILL CONTINUE TO MONITOR.
--- NOTE | 2018-03-23 17:55 | NUR ---
SHIFT SUMMARY PT UP TO CHAIR FOR APPROX 6 HOURS TODAY. WORKED WITH PT AND RECIEVED CPT PERCUSSION FEW TIMES. WAS GIVEN COMPLETE BEDBATH AND LINEN CHANGE. DOPHOFF INSERTED AND CONFRIMED WITH CXR. TF STARTED AT 20 ML/HR PER ORDER AND PT TOELRATING WELL. REMAINED IN NSR, HR 70-80S ENTIRE SHIFT. BP INCREASED WHEN PT AGITATED OR IN PAIN. FENTANYL 25 MCG IVP GIVEN 2X. WILL GIVE BEDSIDE, HANDOFF REPORT TO NOC RN.
--- NOTE | 2018-03-23 20:29 | NUR ---
ASSUMED CARE OF PT PT RESPONDS TO VERBAL STIMULI. PT DOES NOT FOLLOW COMMANDS BUT NODS HEAD YES/NO TO QUESTIONS. PT TOLERATING BIPAP WELL, SETTINGS 12/6 FIO2 40%. TUBE FEEDING PIVOT 1.5 @20 ML/HR TO INCREASE 15 ML/HR Q8 UNTIL GOAL RATE OF 40 ML/HR REACHED, FLUSH 30 ML/HR Q4. NS RUNNING TKO. RECTAL TUBE AND RUBIN PATENT AND DRAINING. SEE FULL SHIFT ASSESSMENT.
--- NOTE | 2018-03-23 23:18 | NUR ---
PT'S DAUGHTER CALLED INQUIRING ABOUT MOTHER'S CONDITION. DAUGHTER (JM) WAS CONCERNED THAT HER MOTHER IS NOT BEING ALLOWED TO SLEEP MUCH SHE'S USED TO AND THOUGHT HER LACK OF SLEEP MAY BE RELATED TO HER COGNITIVE DECLINE. SPENT 20 MINUTES ANSWERING DAUGHTER'S QUESTIONS AND REASSURED HER THAT DIRECTOR [employer] WILL CALL IN THE MORNING TO ANSWER ANY FURTHER QUESTIONS AND HELP CLARIFY TREATMENT PLAN.
--- NOTE | 2018-03-24 02:56 | NUR ---
PT IS SPONTANEOUSLY MOVING UPPER EXTREMETIES AND IS SQUEEZING HANDS ON REQUEST. PT'S SAT HAVE BEEN CONSISTENTLY DROPPING AND WERE IN THE MID 80'S WITH RESPIRATORY RATE OF 40-50'S. INCREASED FI02 TO 50'S AND CONTACTED RT.
[2018-03-24 04:14] LABS: BASOPHILS ABSOLUTE AUTO 0.02 K/mm3 (0.00-0.23); BASOPHILS PERCENT AUTO 0 % (0-2); EOSINOPHILS ABSOLUTE AUTO 0.16 K/mm3 (0.00-0.68); EOSINOPHILS PERCENT AUTO 2 % (0-6); Hematocrit 22.1 % (33.0-51.0); Hemoglobin 7.2 g/dL (11.5-16.0); IMMATURE GRAN ABSOLUTE AUTO 0.22 K/mm3 (0.00-0.10); IMMATURE GRAN PERCENT AUTO 2 % (0-1); LYMPHOCYTES ABSOLUTE AUTO 0.41 K/mm3 (0.84-5.20); LYMPHOCYTES PERCENT AUTO 4 % (21-46); MONOCYTES ABSOLUTE AUTO 0.74 K/mm3 (0.16-1.47); MONOCYTES PERCENT AUTO 7 % (4-13); Mean Corpuscular HGB 32.3 pg (26.0-34.0); Mean Corpuscular HGB Conc 32.6 g/dL (31.5-36.5); Mean Corpuscular Volume 99 fL (80-100); Mean Platelet Volume 10.7 fL (9.1-12.4); NEUTROPHILS ABSOLUTE AUTO 9.07 K/mm3 (1.96-9.15); NEUTROPHILS PERCENT AUTO 85 % (41-73); Platelet Count 237 K/mm3 (150-400); RDW Coefficient Variation 13.7 % (11.7-14.2); RDW Standard Deviation 49.4 fL (35.1-46.3); Red Blood Cell Count 2.23 M/mm3 (3.80-5.20); White Blood Cell Count 10.62 K/mm3 (4.00-11.30)
[2018-03-24 04:31] LABS: Albumin, Blood 2.5 g/dL (3.4-5.0); Anion Gap 9 mmol/L (6-16); Blood Urea Nitrogen 94 mg/dL (8-24); CO2, Blood 33 mmol/L (21-32); Calcium, Blood 8.3 mg/dL (8.5-10.1); Chloride, Blood 100 mmol/L (98-108); Creatinine, Blood 4.08 mg/dL (0.40-1.00); Glomerular Filtration Rate 11 (60-); Glucose, Blood 122 mg/dL (70-99); Magnesium, Blood 1.8 mg/dL (1.6-2.4); Phosphorus, Blood 5.9 mg/dL (2.5-4.9); Potassium, Blood 2.9 mmol/L (3.5-5.5); Sodium, Blood 142 mmol/L (136-145)
[2018-03-24 05:15] LABS: PCO2 Arterial 55.1 mmHg (35-45); PO2 Arterial 68.5 mmHg (80-100)
--- NOTE | 2018-03-24 05:59 | NUR ---
SHIFT SUMMARY NO ACUTE CHANGES OVERNIGHT. PT HAD PERIOD OF LOWER SATS (MID 80'S) AND RESPIRATORY THERAPY CHANGED BIPAP SETTINGS TO 14/10 WITH 55%. PT'S SATS HAVE REMAINED IN THE LOW 90'S SINCE THEN. PT ABLE TO ANSWER YES/NO QUESTIONS BY NODDING HER HEAD AND WAS ABLE ON 2 OCCASIONS TO FOLLOW COMMAND TO SQUEEZE RIGHT/LEFT HAND. RECTAL TUBE AND RUBIN PATENT AND DRAINING. WILL REPORT TO DAYSHIFT NURSE.
[2018-03-24 07:07] LABS: ANTIGLOMERULAR BM AB 7 units (0-20)
--- NOTE | 2018-03-24 07:51 | NUR ---
CARE ASSUMED CARE AND REPORT ASSUMED FROM DIVINE VASQUEZ. PT AWAKE AND ALERT, SLOWLY FOLLOWS COMMANDS AND ANSWERS YES/NO QUESTIONS. PT MORE ALERT TODAY THAN YESTERDAY. VSS. NSR 80S, BP STABLE. TEMP 99.0. TOLERATING TF AT GOAL RATE, 40 ML/HR. POTASSIUM REPLACEMENT INFUSING. C/O ABDOMINAL PAIN AND IS TENDER TO PALPATION, BUT REFUSING PAIN MEDS. HOB ELEVATED HIGH. LUNG SOUNDS CLEAR AND DIMINSHED AT THIS TIME. BIPAP 14/10, FIO2 55%. BUMEX AND ALBUMIN HELD THIS AM PER MD ROMEO. WILL CONTINUE TO MONITOR.
--- NOTE | 2018-03-24 11:33 | NUR ---
REASSESSMENT PT REMAINS AWAKE AND ALERT AND TALKING IN SHORT, CHOPPY SENTENCES. RECEIVED CPT WITH VEST X2 THIS AM. NT SUCTIONED BY RT; GROSS AMOUNTS OF BLOODY SECRETIONS SUCTIONED. TOLERATING TF AT GOAL RATE, 40 ML/HR. C/O DIFFUSE ABDOMINAL PAIN. FENTANYL 25 MCG IVP GIVEN DURING CPT. PT GIVEN COMPLETE BEDBATH AND LINEN CHANGE. REDDENED ARE WITH PEELING SKIN AROUND FRANCOISE AREA AND BUTTOCKS. CLEANED WELL, DRIED WITH TOWEL, AND POWDER APPLIED. RECTAL TUBE REMAINS INTACT; IRRIGATED AND NOW HAVING LIQUID, DARK OUTPUT. RUBIN CATH REMAINS SECURED AND PATENT. VSS. HR AND BP WNL. BIPAP 14/10, FIO2 55% AND WHEN NOT ON BIPAP, PT RESPONDS WELL TO 5L NC WITH 55% FIO2 VENTI MASK. POSITIONED BED INTO CHAIR POSITION WITH SITTING UPRIGHT. WILL CONTINUE TO MONITOR.
--- NOTE | 2018-03-24 13:00 | NUR ---
Assumed care of patient from Jessica Webb. [facility] and is on 5L O2 via NC and 5L O2 via Venti mask and sats low 90%'s. She states she is comfortable and denies any current pain or needs. TF feedings continue and Dophoff patent. Jessica WEBB changed PICC line dressing prior to leaving. Dr Vallejo wanted her on this O2 setup for at least 30 minutes. Her BP is creeping up and will evaluate for possible Hydralazine dose. Flagyl PO crushed and down tube. 30 meq Potassium started.
[2018-03-24 14:07] LABS: A/G RATIO 0.9 (0.7-1.7); ALBUMIN 1.7 g/dL (2.9-4.4); ALPHA-1-GLOBULIN 0.3 g/dL (0.0-0.4); ALPHA-2-GLOBULIN 0.6 g/dL (0.4-1.0); BETA GLOBULIN 0.5 g/dL (0.7-1.3); GAMMA GLOBULIN 0.5 g/dL (0.4-1.8); GLOBULIN, TOTAL 1.9 g/dL (2.2-3.9); IMMUNOGLOBULIN A, QN, SERUM 90 mg/dL (64-422); IMMUNOGLOBULIN G, QN, SERUM 467 mg/dL (700-1600); IMMUNOGLOBULIN M, QN, SERUM 115 mg/dL (26-217); M-SPIKE Not Observed g/dL (Not Observed); PROTEIN, TOTAL, SERUM 3.6 g/dL (6.0-8.5)
--- NOTE | 2018-03-24 15:30 | NUR ---
Patient getting uncomfortable and daughter in room. Took her from chair position and positioned her on left side with HOB at 30 degrees. She continues to state no pain for me and minimal need for repostion. She hypertensive and Hydralizine given by Camille VASQUEZ.
--- NOTE | 2018-03-24 16:24 | NUR ---
Assumed care of patient from Jessica Webb. [facility] and is on 5L O2 via NC and 5L O2 via Venti mask and sats low 90%'s. She states she is comfortable and denies any current pain or needs. TF feedings continue and Dophoff patent. Jessica WEBB changed PICC line dressing prior to leaving. Dr Vallejo wanted her on this O2 setup for at least 30 minutes. Her BP is creeping up and will evaluate for possible Hydralazine dose. Flagyl PO crushed and down tube. 30 meq Potassium started.
[2018-03-24 16:25] LABS: Hematocrit 26.1 % (33.0-51.0); Hemoglobin 8.4 g/dL (11.5-16.0)
--- NOTE | 2018-03-24 17:30 | NUR ---
Patient started to alarm while in other room and patientwas pulling at line of mask and went in room and she was at 73% and replaced lineand instructed her not to pull at mask, her sats started to increase and left to go back to other rooma nd started to alarm again and she had pulled off again. I sat in room after fixing mask and continued to direct about not pulling at mask and she recovered slowly to 91% notefied Dr Vallejo no new orders. She moans alot and when asked if in pain she states "no", will continue to monitor.
--- NOTE | 2018-03-24 19:15 | NUR ---
ASSUMED PT CARE RECEIVED REPORT FROM PEDRO MICHELLE. PT IS CURRENTLY IN BED WITH BIPAP MASK ON WITH SETTINGS 05/01; FIO2 55% AND RESP RATE 26-30'S. NS INFUSING VIA RINKU PICC TKO. RUBIN CATH AND RECTAL TUBE PATENT AND DRAINING TO GRAVITY. PT LYING SIDEWAYS IN BED AND PER REPORT; PT WILL GENERALLY END UP SUCH EVEN AFTER REPOSITIONING. PT IS VERY ANXIOUS WITH MASK AND IS CONSISTENTLY ATTMEPTING TO REMOVE MASK. RT TO START CPT THERAPY. PT DENIES PAIN AT THIS TIME AND GIVES A "THUMBS UP" THAT SHE IS GOOD AND COMFORTABLE.
[2018-03-25 03:46] LABS: BASOPHILS ABSOLUTE AUTO 0.02 K/mm3 (0.00-0.23); BASOPHILS PERCENT AUTO 0 % (0-2); EOSINOPHILS PERCENT AUTO 1 % (0-6); Hematocrit 24.9 % (33.0-51.0); IMMATURE GRAN ABSOLUTE AUTO 0.15 K/mm3 (0.00-0.10); IMMATURE GRAN PERCENT AUTO 1 % (0-1); LYMPHOCYTES ABSOLUTE AUTO 0.36 K/mm3 (0.84-5.20); LYMPHOCYTES PERCENT AUTO 3 % (21-46); MONOCYTES ABSOLUTE AUTO 0.69 K/mm3 (0.16-1.47); MONOCYTES PERCENT AUTO 6 % (4-13); Mean Corpuscular HGB 32.9 pg (26.0-34.0); Mean Corpuscular HGB Conc 32.1 g/dL (31.5-36.5); Mean Platelet Volume 10.6 fL (9.1-12.4); NEUTROPHILS ABSOLUTE AUTO 9.98 K/mm3 (1.96-9.15); NEUTROPHILS PERCENT AUTO 88 % (41-73); Platelet Count 263 K/mm3 (150-400); RDW Coefficient Variation 13.6 % (11.7-14.2); RDW Standard Deviation 50.4 fL (35.1-46.3); Red Blood Cell Count 2.43 M/mm3 (3.80-5.20)
[2018-03-25 03:47] LABS: Mean Corpuscular Volume 103 fL (80-100)
[2018-03-25 04:08] LABS: Magnesium, Blood 1.8 mg/dL (1.6-2.4)
[2018-03-25 04:09] LABS: Albumin, Blood 2.6 g/dL (3.4-5.0); Anion Gap 10 mmol/L (6-16); Blood Urea Nitrogen 98 mg/dL (8-24); Bun/Creatinine Ratio 28.4 (12.0-20.0); CO2, Blood 33 mmol/L (21-32); Chloride, Blood 104 mmol/L (98-108); Creatinine, Blood 3.45 mg/dL (0.40-1.00); Glomerular Filtration Rate 13 (60-); Glucose, Blood 124 mg/dL (70-99); Phosphorus, Blood 4.2 mg/dL (2.5-4.9); Potassium, Blood 3.2 mmol/L (3.5-5.5); Sodium, Blood 147 mmol/L (136-145)
[2018-03-25 04:59] LABS: PCO2 Arterial 49.2 mmHg (35-45); PO2 Arterial 66.6 mmHg (80-100); pH Blood Arterial 7.46 (7.35-7.45)
--- NOTE | 2018-03-25 05:22 | NUR ---
END OF SHIFT SUMMARY PT HAS REMAINED COMPLIANT WITH WEARING BIPAP MASK ALL NIGHT; SETTINGS 16/10 WITH FIO2 60%; OXYGEN SATURATIONS MAINTAINING GREATER THAN 90%. PT HAS BEEN VERY RESTLESS AND CONTINUALLY ENDS UP LYING SIDEWAYS IN THE BED WITH HER HEAD DOWN BY THE SIDERAIL. PT ABLE TO FOLLOW COMMANDS AND RESPOND YES/NO TO QUESTIONS. PT IS CONFUSED AND FORGETFUL; HOWEVER, DENIED PAIN T/O SHIFT. NO NONVERBAL S/SX OF PAIN NOTED. PT TENDS TO BECOME VERY ANXIOUS DURING REPOSITIONING AND REACHES TO PULL OF BIPAP MASK, WELL PULL AT TUBING. PT HAS TO BE CALMY REASSURED TO BREATHE IN ORDER FOR RESP RATE AND OXYGEN SATURATIONS TO MAINTAIN AT ADEQUATE VALUES. RUBIN AND RECTAL TUBE REMAIN PATENT AND DRAINING TO GRAVITY. PT CONTINUES WITH REDNESS TO GROIN/FRANCOISE AREA; CALAZIME CREAM APPLIED. APPEARS TO HAVE RASH TO BACKSIDE; CREAM APPLIED TO THOSE AREAS WELL; DRESSING REMAINS INTACT OVER LEFT BUTTOCK COVERING ABRASION. PT REMAINS A HIGH RISK FOR OPEN AREAS D/T CONSTANT RESTLESSNESS AND HIGH RISK FOR SHEARING. PT APPEARS COMFORTABLE AT THIS TIME; RESTING SOUNDLY.
--- NOTE | 2018-03-25 07:11 | NUR ---
ASSUMED CARE: PT RESTING IN BED. BIPAP IN PLACE. SETTINGS AT 16/10, O2 60%. TUBE FEED GOING THROUGH DOBHOFF AT GOAL. RT IN ROOM SETTING UP CPT. VSS AT THIS TIME. NO CURRENT NEEDS BY PATIENT.
--- NOTE | 2018-03-25 08:04 | NUR ---
PT CONTIUALLY ANXIOUS. DOES NOT TAKE MASK OFF BUT CONTINUES TO GRAB AT LINES AND TUBES. ATTEMPTED TO PERFORM ORAL CARE BUT PT CLAMPED HER MOUTH SHUT AND REFUSED TO OPEN FOR ORAL CARE. APPEARS NONVERBAL. LOOKS AT STAFF WHEN SPOKEN TO BUT DOES NOT RESPOND. NOISES CAN BE HEARD AT TIMES THROUGH MASK BUT NOTHING DECIPHERABLE. REPOSITIONED IN BED, PT STRUGGLED THROUGHOUT.
--- NOTE | 2018-03-25 09:47 | NUR ---
DR MCDOWELL AWARE THAT RN ATTEMPTED BREAK FROM BIPAP FOR ORAL CARE AND THAT PT ATTEMPTED TO TAKE NC OFF AT THAT TIME. STATES THAT WHILE PT IS DEPENDENT ON BIPAP, HE WANTS TO KEEP HER ICU STATUS. TURNED BIPAP O2 FLOW DOWN TO 45%, CURRENT SATURATIONS BETWEEN 88-90%. WILL CONTINUE TO MONITOR AND DISCUSS FURTHER WITH
--- NOTE | 2018-03-25 11:47 | NUR ---
BREAK FROM BIPAP ATTEMPTED FOR ORAL CARE. PT STRUGGLES AGAINST STAFF TO PUT NC IN NOSE AT 5L. ONLY WOULD ALLOW ORAL CARE IF SWAB DID NOT HAVE ANYTHING ON IT. DESATS QUICKLY INTO 70S ON NC. BACK ON BIPAP NOW. RT IN ROOM.
[2018-03-25 13:08] LABS: ANA DIRECT Negative (Negative); ANTIMYELOPEROXIDASE (MPO) ABS <9.0 U/mL (0.0-9.0); ANTIPROTEINASE 3 (PR-3) ABS <3.5 U/mL (0.0-3.5); ATYPICAL PANCA <1:20 titer ({null, Neg:<1:20}); CYTOPLASMIC (C-ANCA) <1:20 titer ({null, Neg:<1:20}); PERINUCLEAR (P-ANCA) <1:20 titer ({null, Neg:<1:20})
--- NOTE | 2018-03-25 13:29 | NUR ---
Pt up in chair on BIPAP. Restless frequent movement of legs and arms and heard turning, no grimace noted. Review of pt with nursing. Attempted last week to speak with family, but staff had some detatiled conversations with them and they were to fatigued. pt KPS scale is 20%. PT/OT unable to work with patient. Nursing reports poor tolerance to minimal mouth care and breaks on BIPAP. Asked nursing to call when family comes in to review prognosis and plan. Goal is to afford pt every opportunity to rehab and to discuss pt needs. Approach to family discussion will be comprehensive based on suffering, spiritual and family needs and stresses for decision making. Will review risks for and/or intubation. will attempt POLST with family. Review with nursing last week suggested family is inclined towards physician involvement in decisions. Will leave them loving choices book and continue with chaplian support. Will review with physicians. If family not in by this evening will give a phone call.
--- NOTE | 2018-03-25 13:34 | NUR ---
PT SITTING UPRIGHT IN CHAIR. FIDGETS FREQUENTLY. DECLINES PAIN MEDS AND STATES SHE FEELS COMFORTABLE. SATTING 91% WITH BIPAP FIO2 AT 55%, ADJUSTED BY RT. DISCUSSED PT'S CASE WITH PALLIATIVE CARE. PALLIATIVE CARE WISHES TO BE NOTIFIED IF FAMILY ARRIVES OR DR MCDOWELL RETURNS. NO FURTHER NEEDS OR CONCERNS AT THIS TIME
--- NOTE | 2018-03-25 13:52 | NUR ---
Therputic time spent with pt. She wanted to hold my hand the whole time. Very slowly asked a few questions. She nodded yes but unsure if comprehended. Pt has accessory use and head turning and poor chest wall movement. She moves loer arms frequntly and grabbing keeps elbows in. No grunting noted, but grimace. pt leans to left. Review of fatigue and ventilatory stress and risk and benefit of prn meds with nursing.
--- NOTE | 2018-03-25 14:17 | NUR ---
REPORTED OFF TO PEDRO NOVAK. PT CURRENTLY RESTING IN CHAIR WITH BIPAP IN PLACE, 55% FIO2. 91% O2 SAT AT THIS TIME. NO ACUTE NEEDS OR CONCERNS AT THIS TIME
[2018-03-25 15:07] LABS: M-SPIKE, % Not Observed % (Not Observed); PROTEIN,TOTAL,URINE 8.8 mg/dL (Not Estab.)
--- NOTE | 2018-03-25 16:18 | NUR ---
ASSUMED CARE OF PT FROM PEDRO CHATTERJEE. PT RESTING IN CHAIR. SHE FIDGETS FREQUENTLY, BUT HAS NOT BEEN PULLING AT LINES. NO FAMILY AT BEDSIDE. NO REQUESTS. CONTINUING TO MONITOR.
--- NOTE | 2018-03-25 19:15 | NUR ---
ASSUMED PT CARE PT REMAINS ON BIPAP WITH SETTINGS 16/10; FIO2 55% WITH OXYGEN SATURATIONS MAINTAINING AT 92%. PT IS CONFUSED AND FORGETFUL; ONLY ALERT TO SELF. VERY RESTLESS; REPOSITIONED WITH LEGS ELEVATED ON PILLOWS ON ON LEFT SIDE. PT APPEARS COMFORTABLE AT THIS TIME WITH NO SIGNS OF ACUTE DISTRESS.
--- NOTE | 2018-03-25 23:25 | NUR ---
PT'S FAMILY IN TO VISIT EARLIER THIS EVENING. ASKED QUESTIONS IN REGARDS TO PT'S PRIOR LEVEL OF MENTATION AND FUNCTIONAL ABILITY. DAUGHTER STATED THAT PT WAS VERY INDEPENDENT PRIOR TO HOSPITAL STAY AND ALSO STATED THAT PT WAS LIVING WITH HER WHO RECENTLY FRACTURED A HIP; THEREFORE, HASN'T BEEN HOME WITH PT FOR TWO MONTHS. DAUGHTER STATES PT TYPICALLY RUNS IN THE LOW 80'S OXYGEN SATURATION JACOBSON AND THAT PT IS SUPPOSED TO WEAR OXYGEN, BUT ISN'T VERY COMPLIANT WITH WEARING IT. DAUGHTER STATED PT HAS BEEN NOTED TO BE FORGETFUL AT TIMES, BUT IS VERY EFFICIENT WITH HER RESPONSIBILITIES AND IS ABLE TO MAINTAIN REMEMBERING APPTS AND SUCH. DAUGHTER IS VERY UNDERSTANDING IS RECOGNIZES THAT PT IS MOST LIKELY GOING TO NEED MORE ASSISTANCE AT HOME WITH CAREGIVERS.
[2018-03-26 02:11] LABS: (LD) FRACTION 1 38 % (17-32); (LD) FRACTION 2 43 % (25-40); (LD) FRACTION 3 12 % (17-27); (LD) FRACTION 4 3 % (5-13); (LD) FRACTION 5 4 % (4-20); LDH 191 IU/L (119-226)
--- NOTE | 2018-03-26 03:23 | NUR ---
CALLED DR. ORELLANA SECONDARY TO PT BEING RESTLESS ALL NIGHT AND HASN'T SLEPT. NONETHELESS, PT CAN'T REMAIN STILL FOR A BLOOD PRESSURE READING. NEW ORDERS FOR HALIDOL 3MG IV NOW X1 DOSE. PT ALSO STARTED ON GENTAMYCIN EYE DROPS D/T RED, IRRITATION NOTED TO LEFT EYE.
--- NOTE | 2018-03-26 06:28 | NUR ---
END OF SHIFT SUMMARY PT HAS REMAINED AWAKE AND RESTLESS T/O ENTIRE SHIFT. PT HAS BEEN MEDICATED X1 WITH HALIDOL 3MG PER DR. ORELLANA ORDER; UNEFFECTIVE. PT HAS BEEN REPOSITIONED FREQUENTLY D/T RESTLESSNESS. PT HAS BEEN MEDICATED FOR PAIN WITH FENTANYL PER ORDERS; PAIN APPEARS TO NOT BE THE ISSUE EITHER. PT APPEARS TO HAVE ADVANCED MEMORY LOSS; SEVERELY CONFUSED AND FORGETFUL. PT HASN'T TOLERATED THE BP CUFF EITHER; SHE WILL CONSTANTLY MOVE HER ARM AND ATTEMPT TO GET THE CUFF OFF HER ARM, WHICH CAUSES THE CUFF TO TIGHTEN MORE; THEREFORE, A FEW OF BP'S WERE TAKEN MANUALLY D/T INACCURATE READINGS. PT WAS MEDICATED X1 WITH PRN HYDRALAZINE D/T SBP 170'S; EFFECTIVE. TF INFUSING AT GOAL OF 40MLS/HR WITH WATER FLUSHES Q4HRS. PICC REMAINS PATENT TO LEFT UPPER ARM. RUBIN CATH REMAINS PATENT AND DRAINING TO GRAVITY. NEW RECTAL TUBE PLACED D/T INFLATION TUBING BEING DISLODGED SOME HOW; PATENT AND DRAINING TO GRAVITY. PT CONTINUES WITH REDDENED AREAS TO BUTTOCKS/FRANCOISE AREA; NYSTATIN POWDER APPLIED. NEW REDNESS TO LEFT EYE OBSERVED THIS SHIFT; NEW ORDERS FOR GENTAMICIN EYE DROPS. PT CONTINUES RESTLESSNESS AT THIS TIME; REPOSITIONED AGAIN FOR COMFORT; UNEFFECTIVE. PT DENIES PAIN.
--- NOTE | 2018-03-26 08:24 | NUR ---
Received report and assumed care of patient. This morning she is anxious, irritated and showing signs of delirium. When asked if she could tell us her name, she does not respond. Patient responds to verbal stimulus and does follow directions when doing patient care. Opened blinds and oriented to time of day, sat patient up in recliner with orientation to window for view. Pt continues on bipap 16/10 with FiO2 of 55%. Lungs sounds coarse/rhonci throughout. Tube feeding is running at 40 ml/hour at goal rate, with 30ml H2O flush Q4 hours. Abdominal pain in LUQ. Rectal and Foleys draining to gravity. Patient has a rash from mid-thighs up to mid-abdomen. She is scratching and moving around showing signs of discomfort. Called Dr. Zapata to report rash, he will place orders.
[2018-03-26 09:22] LABS: BASOPHILS ABSOLUTE AUTO 0.02 K/mm3 (0.00-0.23); BASOPHILS PERCENT AUTO 0 % (0-2); EOSINOPHILS ABSOLUTE AUTO 0.15 K/mm3 (0.00-0.68); EOSINOPHILS PERCENT AUTO 2 % (0-6); Hematocrit 25.1 % (33.0-51.0); Hemoglobin 7.9 g/dL (11.5-16.0); IMMATURE GRAN ABSOLUTE AUTO 0.06 K/mm3 (0.00-0.10); IMMATURE GRAN PERCENT AUTO 1 % (0-1); LYMPHOCYTES ABSOLUTE AUTO 0.44 K/mm3 (0.84-5.20); LYMPHOCYTES PERCENT AUTO 4 % (21-46); MONOCYTES ABSOLUTE AUTO 0.66 K/mm3 (0.16-1.47); MONOCYTES PERCENT AUTO 7 % (4-13); Mean Corpuscular HGB 32.5 pg (26.0-34.0); Mean Corpuscular HGB Conc 31.5 g/dL (31.5-36.5); Mean Corpuscular Volume 103 fL (80-100); Mean Platelet Volume 10.2 fL (9.1-12.4); NEUTROPHILS ABSOLUTE AUTO 8.69 K/mm3 (1.96-9.15); NEUTROPHILS PERCENT AUTO 87 % (41-73); Platelet Count 249 K/mm3 (150-400); RDW Coefficient Variation 13.6 % (11.7-14.2); RDW Standard Deviation 51.8 fL (35.1-46.3); Red Blood Cell Count 2.43 M/mm3 (3.80-5.20); White Blood Cell Count 10.02 K/mm3 (4.00-11.30)
[2018-03-26 09:42] LABS: Magnesium, Blood 1.9 mg/dL (1.6-2.4)
[2018-03-26 09:43] LABS: Albumin, Blood 2.9 g/dL (3.4-5.0); Bilirubin, Total 0.4 mg/dL (0.1-1.0); Bun/Creatinine Ratio 35.7 (12.0-20.0); Calcium, Blood 8.8 mg/dL (8.5-10.1); Creatinine, Blood 2.8 mg/dL (0.40-1.00); Phosphorus, Blood 3.8 mg/dL (2.5-4.9); Potassium, Blood 3.1 mmol/L (3.5-5.5); Total Protein, Blood 5.9 g/dL (6.4-8.2)
--- NOTE | 2018-03-26 11:20 | NUR ---
PT/OT IN TO WORK WITH PATIENT, THEY WORKED ON TRUNK CONTROL AND HAD PATIENT SITTING UP AT 90 DEGREES WITH FEET RESTING ON FLOOR. PT TOLERATED WELL, BUT HAS LITTLE CONTROL OVER BALANCE AT THIS TIME. ENCOURAGED RN'S TO CONTINUE TO ASSIST PATIENT INTO SITTING UPRIGHT POSITION TO INCREASE TRUNK CONTROL AND MOBILITY. PT RECLINED AT THIS TIME RESTING COMFORTABLY. TOLERATING HIGH-FLOW AIRVO WITH O2 SAT AT 94%.
--- NOTE | 2018-03-26 17:36 | NUR ---
DAUGHTER AT BEDSIDE WITH PEDRO CUENCA FROM [facility]. DISCUSSING PATIENT CONDITION AND PLAN TO MEET WITH DOCTORS TOMORROW MORNING TO DISCUSS FUTHER TREATMENT AND POC MOVING FORWARD.
--- NOTE | 2018-03-26 18:24 | NUR ---
PT REPOSITIONED BACK TO BED, EXPLAINED CARE AND PT SEEMED TO UNDERSTAND NEED FOR ORAL CARE, ALLOWED HER MOUTH TO BE CLEANED WITHOUT CLENCHING TEETH, WHEN FINISHED ASKED PATIENT IF THAT FELT BETTER, SHE SHOOK HER HEAD "YES." ALLOWED PT TO ATTEMPT TO PUT ON LIPBALM, SHE ALLOWED CARE WHEN SHE IS ACTIVELY INVOLVED.
--- NOTE | 2018-03-26 18:26 | NUR ---
SHIFT SUMMARY: PT CONTINUES ON HIGH-FLOW AIRVO WITH SETTING OF 60 LPM AND 60 FIO2. PT TOLERATED THE CHAIR DURING THE DAY AND HER AFFECT SEEMED TO IMPROVE, WHEN SPEAKING WITH PATIENT TODAY, SHE HAD SEVERAL ONE WORD ANSWERS, YES/NO. PT CONTINUES TO IDENTIFY PAIN IN HER LUQ BY HOLDING STOMACH AND MOANING. CONTINUING TUBE FEED AT 40 ML/HOUR, TODAY THE FLUSHES INCREASED TO 150 ML H2O Q4HRS. RECTAL AND RUBIN TUBES DRAINING TO GRAVITY. WILL GIVE REPORT TO ONCOMING RN.
[2018-03-27 04:00] LABS: BASOPHILS ABSOLUTE AUTO 0.03 K/mm3 (0.00-0.23); BASOPHILS PERCENT AUTO 0 % (0-2); EOSINOPHILS PERCENT AUTO 1 % (0-6); Hemoglobin 7.9 g/dL (11.5-16.0); IMMATURE GRAN ABSOLUTE AUTO 0.05 K/mm3 (0.00-0.10); IMMATURE GRAN PERCENT AUTO 1 % (0-1); LYMPHOCYTES PERCENT AUTO 5 % (21-46); MONOCYTES ABSOLUTE AUTO 0.63 K/mm3 (0.16-1.47); MONOCYTES PERCENT AUTO 7 % (4-13); Mean Corpuscular HGB 32.6 pg (26.0-34.0); Mean Corpuscular HGB Conc 30.4 g/dL (31.5-36.5); NEUTROPHILS ABSOLUTE AUTO 7.76 K/mm3 (1.96-9.15); NEUTROPHILS PERCENT AUTO 87 % (41-73); Platelet Count 254 K/mm3 (150-400); RDW Coefficient Variation 13.8 % (11.7-14.2); RDW Standard Deviation 54.5 fL (35.1-46.3); Red Blood Cell Count 2.42 M/mm3 (3.80-5.20); White Blood Cell Count 8.97 K/mm3 (4.00-11.30)
[2018-03-27 04:01] LABS: Mean Corpuscular Volume 107 fL (80-100)
[2018-03-27 04:19] LABS: Albumin, Blood 2.8 g/dL (3.4-5.0); Albumin/Globulin Ratio 0.9 (0.8-1.8); Bilirubin, Total 0.4 mg/dL (0.1-1.0); Bun/Creatinine Ratio 39.8 (12.0-20.0); Calcium, Blood 9.3 mg/dL (8.5-10.1); Creatinine, Blood 2.46 mg/dL (0.40-1.00); Globulin, Blood 3.2 g/dL (2.2-4.0); Magnesium, Blood 2.1 mg/dL (1.6-2.4); Phosphorus, Blood 4.7 mg/dL (2.5-4.9); Potassium, Blood 3.4 mmol/L (3.5-5.5)
--- NOTE | 2018-03-27 05:52 | NUR ---
SHIFT NOTE REPORT RECIEVED AT START OF SHIFT, SEE SHIFT ASSESSMENT. NO ACUTE CHANGES THROUGHOUT THE NIGHT. PT NEEDED TO BE PUT IN SBW RESTRAINTS AT BEGINNING OF SHIFT DUE TO CONTINUALLY PULLING OFF AIRVO AND DESATTING TO 70'S. SBW RESTRAINTS REMAIN IN PLACE. PT HAS REMAINED CONFUSED AND FIDGETY, AND CONTINUES TO ATTEMPT TO PULL AT LINES/TUBES. PT IS ONLY ABLE TO BE REDIRECTED FOR VERY BREIF PERIODS OF TIME. PT IS ABLE TO NOD HEAD YES OR NO TO SOME SIMPLE QUESTIONS, OTHERWISE UNABLE TO FOLLOW COMMANDS. VITAL SIGNS HAVE REMAINED STABLE. AIRVO AT 55 L/MIN, FIO2 67%. DOBHOFF IN PLACE WITH TF AT 40 ML/HR GOAL RATE. PICC TO RINKU C/D/I, SALINE LOCKED. RUBIN IN PLACE WITH YELLOW OUTPUT NOTED. RECTAL TUBE IN PLACE WITH DARK BROWN LIQUID STOOL OUTPUT NOTED. PT WITH REDDENED AREA/RASH TO LOWER ABD/PELVIS AREA. WILL CONTINUE TO MONITOR AND REPORT OFF TO ONCOMING RN.
--- NOTE | 2018-03-27 09:00 | NUR ---
PT ASSESSED AT 0730 THIS AM. PT AWAKE AT 0730 DESTRESSED AND RESTLESS. PT ABLE TO FOLLOW SIMPLE COMMANDS. PT NODS HEADS TO QUESTIONS, APPEARS TO NOD APPROPRIATELY. WHEN ASKED IF SHE COULD TELL ME HER NAME PT NODS NO, AND LOOKS UPSET ABOUT IT. PT RE-ORIENTED. WHEN ASKED IF PT COULD SPEAK, SHE NODS YES, BUT DID NOT SPEAK WHEN ASKED TO. ABLE TO SAY GOOD MORNING WITH PROMPTING. VOICE WEAK AND WHISPERED. COUGH VERY WEAK. PT WAS RESTRAINED AT 0730 FOR PULLING TUBES OUT. RECTAL TUBE WAS FOUND IN BED. RESTRAINTS REMOVED. PT ABLE TO ASSIST SOMEWHAT WITH TURNS DURING BED CHANGE. PT GIVEN FULL BED BATH, FLEXISEAL REPLACED. RASH NOTED TO ENTIRE BODY, DIFUSE, RED, WARM, EDEMATOUS ON OUTER THIGHS, BLANCHES, RAISED. WORSE TO ABD, BUTTOCKS, AND THIGHS. PT ACTIVELY SCRATCHING AT BODY, WILL GIVE BENADRYL AND ASK FOR TOPICAL CREAM. MEPILEX SUCURE TO RIGHT BUTTOCKS AREA. DURING BATH PT'S SATS DROPPED INTO LOWER 80%, LARGE AMT OF SALIVA/MUCUS SUCTIONED FROM MOUTH AND BACK OF THROAT, PROMPTING NT SX. PT TOLERATED FAIR. NT PASSED THROUGH RIGHT NARE WITHOUT RESISTANCE, BUT THERE WAS SOME BLEEDING; POSSIBLE D/T ELIQUIS. VERY LARGE AMT OF THICK GRIFFIN SECRETIONS SX'S FROM TRACH. BIPAP PLACED AFTER SX. SATS RAISED TO 98% WITHIN MINS. PT APPEARED MORE CALM ON BIPAP AND NODED HEAD YES TO FEELING LESS SOB W BIPAP. LIFT USED TO PLACE PT UP IN CHAIR WITH WINDOW VIEW. PT CALMLY RESTING/SLEEPING, NOT PULLING ON TUBES; RESTRAINTS KEPT OFF. SX TUBING CHANGED. UPDATE GIVEN TO DR ZHANG AND PT'S DAUGHTER. MEETING WITH PT'S FAMILY, PALLIATIVE CARE, AND VICENTE. PT NOW DNR STATUS.
--- NOTE | 2018-03-27 12:29 | NUR ---
Meeting coordinated between Palliative care, health and social care teacher, daughter of patient, son of patient. Introductions are made and meeting underway with myself and Radha, acute care registered nurse along with family. Lindsey, daughter, is spokesperson, with Thor, son, as a supportive role. Their father is currently at [facility] recovering from a hip fracture and femur fracture. He is getting all information from the daughter and the son, and is acting decision maker. Family members are in crisis, trying to make decisions for mom. Their struggle is partially with understanding what the patient's true wishes are. The advance directive they have for her indicates 'as my physician recommends' for most of the interventions outlined in the directive. This is causing extreme distress for the daughter, Lindsey, particularly. Thor has many health issues and is unable to perform as spokesperson. Radha started the meeting and explained the importance of starting discharge planning early in the process. She assures the family that our purpose is to help with arrangements and loan counselor as needed. Together, further planning for SNF eventually was discussed and reviewed. It is most definately in the plan to send her to SNF as she gets better, and if she is able to follow directions for rehab. Allowed time for family to vent frustrations. They express that it is frustrating and difficult to have different nurses everyday, along with changing providers. Explained holiday scheduling and how it has played a role in nurse staffing. Lindsey verbalizes understanding and is content with this explaination. She still feels that care is disjointed. Lindsey was explaining how distraught the patient has gotten over loss of memory. She reports that their dad has probably masked some of her deficits by reminding her to do things, such as take her pills. She relies on him to tell her which day it is, so she can take the appropriate medications for that day. Lindsey states that she probably hasn't been medicated properly due to this. Discussed complex medical treatments with daughter. She appears to have the capability to understand and frequently rephrases what instruction I have given her in verbalizing understanding. 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 Reviewed medications, labs, imaging studies. Encouragement given, praise for her obvious love for her mother. She reports that she will review all of this with her father. Plans are made to meet at 9:30 with providers tomorrow morning to evaluate where we are, as far as prognosis. Will attend the meeting and continue education, recommendations.
--- NOTE | 2018-03-27 12:55 | NUR ---
Pt continues on her hospital course. Met with Thor Portillo, and Dr. Ron. Current condition of the patient is discussed in detail by Dr. Ron. Pt's prognosis is guarded. Formulated care plan. Pt will be DNR/DNI at this time. If she continues to fail or has an event that drastically changes, she will be placed on comfort care. For now, continue current course and get patient better. Reviewed needs. The family is reorganizing their trust. At this time, it is mom and dad on trust. Since this event, they are looking to change some finacial matters to include son and daughter. They request letter from MD stating that the patient lacks capability to make finacial choices. This is written and waiting for doctor review and signature. Introduced Lindsey to Mary, palliative nurse, for continuity of care. This seems to be especially important to Lindsey, to have someone involved thoughout the patient's stay in the hospital. She expresses that she would like to stop being a decision maker and start being a daughter. She feels that there is a burden on her and she is unable to cope emotionally as a daughter. Assured her that we will be able to make this journey with her, that she is not alone. She appreciates this. Palliative to remain available.
--- NOTE | 2018-03-27 13:10 | NUR ---
HYDRALAZINE IV GIVEN FOR HTN, NORVASC PT STARTED. CALAMINE LOTION ORDERED FOR RASH, BENEDRYL PT GIVEN. FREE WATER INCREASED TO 250CC Q 4 HRS AND PROGRAMMED INTO PUMP. RESTRAINTS REMAIN OFF, PT REMAINS UP IN CHAIR, SLEEPING, OCCASIONALLY OPENS EYES AND LOOKS OUTSIDE BEFORE FALLING BACK TO SLEEP AGAIN. PT DENIES COMPLAINS. AIRVO PLACED AT 1215.
--- NOTE | 2018-03-27 14:51 | NUR ---
PT FOUND TO BE VERY RESTLESS. REACHING AND FLAILING LEGS, PT APPEARS TO BE IN CONSTANT STARTLED STATE. O2 PULLED OFF WELL SPO2 PROBE. SATS 88%. BIPAP PLACED. PT MORE RESTFUL W BIPAP. FLEXISEAL INTACT W/O LEAK. ORANGE BARRIER CREAM APPLIED TO BOTTOM. PT SCRATCHING AGAIN, WILL GIVE MORE BENADRYL PT.
--- NOTE | 2018-03-27 15:08 | NUR ---
PT'S DAUGHTER BROUGHT IN POLST. PT NOW DNR STATUS W LIMITED TREATMENT
--- NOTE | 2018-03-27 16:55 | NUR ---
BENADRYL PT GIVEN FOR ITCHING TO RASH. TYLENOL PT GIVEN FOR PERSISTANT LOW GRADE TEMP AND COMFORT. PT REPOSITIONED. RESTRAINTS PLACED PT IS NOT REDIRECTABLE AND CONTINUES TO PULL O2 AND LINES OFF.
--- NOTE | 2018-03-27 21:04 | NUR ---
ASSUMED CARE BEDSIDE REPORT RECIEVED. PT IS RESTING IN BED QUIETLY, FIDGETING AT TIMES. PT AROUSES TO VERBAL STIMULI, BUT IS NOT ABLE TO FOLLOW COMMANDS AT THIS TIME. PT CAN NOD HEAD YES OR NO TO SIMPLE QUESTIONS. PT SPEAKS OCCASIONAL WORDS, BUT CONFUSED. PT WITH SBW RESTRAINTS IN PLACE DUE TO CONTINUED ATTEMPTS TO PULL AT LINES/TUBES. PT WITH BIPAP IN PLACE 14/8 FIO2 55%. VITAL SIGNS STABLE. DOBHOFF IN PLACE WITH TF AT 40 ML/HR GOAL RATE. PICC TO RINKU C/D/I, SALINE LOCKED. RUBIN TEMP PROBE IN PLACE WITH YELLOW OUTPUT NOTED. RECTAL TUBE IN PLACE WITH LIQUID BROWN OUTPUT NOTED. NO FAMILY PRESENT AT THIS TIME. RASH TO ABD AND DOWN TO UPPER LEGS NOTED. WILL CONTINUE TO MONITOR.
[2018-03-28 04:30] LABS: BASOPHILS ABSOLUTE AUTO 0.03 K/mm3 (0.00-0.23); BASOPHILS PERCENT AUTO 1 % (0-2); EOSINOPHILS ABSOLUTE AUTO 0.21 K/mm3 (0.00-0.68); EOSINOPHILS PERCENT AUTO 3 % (0-6); Hematocrit 24.8 % (33.0-51.0); Hemoglobin 7.6 g/dL (11.5-16.0); IMMATURE GRAN ABSOLUTE AUTO 0.03 K/mm3 (0.00-0.10); IMMATURE GRAN PERCENT AUTO 1 % (0-1); LYMPHOCYTES ABSOLUTE AUTO 0.42 K/mm3 (0.84-5.20); LYMPHOCYTES PERCENT AUTO 6 % (21-46); MONOCYTES ABSOLUTE AUTO 0.64 K/mm3 (0.16-1.47); MONOCYTES PERCENT AUTO 10 % (4-13); Mean Corpuscular HGB 32.3 pg (26.0-34.0); Mean Corpuscular HGB Conc 30.6 g/dL (31.5-36.5); Mean Corpuscular Volume 106 fL (80-100); Mean Platelet Volume 10.5 fL (9.1-12.4); NEUTROPHILS ABSOLUTE AUTO 5.22 K/mm3 (1.96-9.15); NEUTROPHILS PERCENT AUTO 80 % (41-73); Platelet Count 240 K/mm3 (150-400); RDW Standard Deviation 53.5 fL (35.1-46.3); Red Blood Cell Count 2.35 M/mm3 (3.80-5.20); White Blood Cell Count 6.55 K/mm3 (4.00-11.30)
[2018-03-28 04:49] LABS: Albumin, Blood 2.7 g/dL (3.4-5.0); Albumin/Globulin Ratio 0.9 (0.8-1.8); Bilirubin, Total 0.5 mg/dL (0.1-1.0); Bun/Creatinine Ratio 46.7 (12.0-20.0); Calcium, Blood 9.8 mg/dL (8.5-10.1); Creatinine, Blood 2.1 mg/dL (0.40-1.00); Globulin, Blood 3.1 g/dL (2.2-4.0); Potassium, Blood 3.5 mmol/L (3.5-5.5); Total Protein, Blood 5.8 g/dL (6.4-8.2)
--- NOTE | 2018-03-28 05:46 | NUR ---
SHIFT SUMMARY NO ACUTE CHANGES THIS SHIFT. PT HAS REMAINED ON BIPAP THROUGHOUT THE SHIFT. BIPAP 14/8, FIO2 55%. PT REMAINS FIDGETY AND RESTLESS. PT SHAKES HEAD NO TO PAIN OR DISCOMFORT. SBW RESTRAINTS REMAIN IN PLACE. VITAL SIGNS HAVE REMAINED STABLE WITH PERIODS OF HYPERTENSION. PT MED WITH HYDRALAZINE PER EMAR. DOBHOFF REMAINS IN PLACE WITH TF AT 40 ML/HR GOAL RATE. PICC REMAINS C/D/I, SALINE LOCKED. RUBIN IN PLACE WITH GOOD URINE OUTPUT. RECTAL TUBE REMAINS IN PLACE WITH LIQUID BROWN STOOL. RASH TO LOWER ABD AND UPPER LEGS REMAINS UNCHANGED. PT DAUGHTER BY THIS EVENING AND UPDATED TO PT CONDITION. WILL CONTINUE TO MONITOR AND REPORT OFF TO ONCOMING RN.
--- NOTE | 2018-03-28 09:35 | NUR ---
PT AWAKE AND RESTLESS AT 0730. RESTRAINTS IN PLACE AND REMOVED. PT COOPERATIVE BUT CONFUSED. STARTLES WITH ANY CARE, FLARING ARMS AND LEGS WILDLY AT TIMES, ABLE TO SOOTH AT TIMES. PT GIVEN AM BED BATH. RASH MUCH IMPROVED FROM YESTERDAY. PT CONTINUES TO SCRATCH SKIN AND SCALP CONSTANTLY, BENADRYL GIVEN. PT ALLOWS ORAL CARE WITH CONSTANT DIRECTION AND PROMPTING. MOUTH MUCH IMPROVED. PT'S COUGH IS WEAK AND SHE IS UNABLE TO PRODUCE SPUTUM EVEN THOUGH COUGH IS WET. ORAL SX'D. LUNGS ARE WET WITH CRACKLES T/O, MUCH MORE THAN YESTERDAY. ATTEMPTED TO PLACE PT ON AIRVO DURING CARE. PT BECAME EXTREMELY RESTLESS/PANICKING WITHIN 5MIN. SATS SUDDENLY DROPPED TO 65% WITH GOOD WAVE FORM AND HR CORRELATION. BIPAP PLACED IMMEDIATELY. SATS RECOVERED WITHIN 3MIN TO 92%. DR ZHANG NOTIFIED OF EVENT AND CRACKLES, PT MAY REQUIRE LASIX. PT PLACED UP IN CHAIR WITHOUT RESTRAINTS. PT VERY RESTLESS AND TWISTING IN CHAIR WITH GRIMACING. PT NODS YES TO PAIN AND POINTS TO BACK. PT MEDICATED WITH 25MCG OF FENTANYL WITH GOOD RESULT. PT REMAINS AWAKE LOOKING OUT OF WINDOW.
--- NOTE | 2018-03-28 10:52 | NUR ---
DR ZHANG IN TO SEE PT. BIPAP SETTINGS CHANGED TO 10/5 WITH FIO2 AT 50%. TV GOOD, SATS 100%. PT MILDLY RESTLESS.
--- NOTE | 2018-03-28 12:15 | NUR ---
PT UP IN CHAIR SATS 97% ON BIPAP. PT W/O COMPLAINTS. PT RELUCTANT TO TRY AIRVO, NODDED YES TO FEELING MORE SHORT OF BREATH ON IT. PT TRIED ON AIRVO. WITH BIPAP MASK OFF IT WAS NOTED THAT PT MUCH MORE ALERT AND COMMUNICATIVE. ABLE TO SAY SHORT 2-3 WORD ANSWERS. UNABLE TO STATE NAME BUT ANSWERS QUESTIONS APPROPRIATELY. PT DESATURATED WITHIN 2MIN OF AIRVO PLACEMENT. DESATURATED TO 60% WITH GOOD WAVE FORM AND HR CELESTINO. PT APPEARED IN DISTRESS ALONG WITH RESTLESSNESS AND WHEEZING. BIPAP REPLACED IMMEDIATELY, SATS RETURNED TO 95% AFTER ABOUT 4MIN. PT CALM W BIPAP. DR ZHANG CALLED AND NOTIFIED. CRACKLES REMAIN, LASIX ORDERED.
--- NOTE | 2018-03-28 17:33 | NUR ---
PT'S DAUGHTER VISITING WITH PT. AIRVO AT 50L AND 68%FIO2. SATS 97%, PT CALM, COOPERATIVE, AND IN NO DISTRESS. PT REMAINS IN THE CHAIR. WHEN ASKED IF SHE WOULD LIKE TO GO TO BED, PT SAYS NO. PT MORE DROWSY NOW THAN PREVIOUS HOURS, SHAKES HER HEAD YES TO BEING TIRED.
--- NOTE | 2018-03-28 19:09 | NUR ---
PT PLACED ON AIRVO AT 50L FIO2 60%, PT TOLERATING VERY WELL WITHS SATS 97%. PT CALM.
--- NOTE | 2018-03-28 19:40 | NUR ---
ASSUMED CARE REPORT RECIEVED. PT IS RESTING QUIELTY LAYING IN BED ON BIPAP. BIPAP 10/5, FIO2 45%. PT IS NOT RESTRAINED AT AND HAS NOT BEEN PULLING AT LINES/TUBES. PT REMAINS CONFUSED, BUT IS MORE RESPONSIVE AND IS ABLE TO FOLLOW SOME COMMANDS APPROPRIATELY. VITAL SIGNS STABLE. PICC TO RINKU C/D/I WITH D5 AT 100 ML/HR. DOBHOFF IN PLACE WITH TF AT 40 ML/HR GOAL RATE WITH 250 ML Q4H WATER FLUSHES. RUBIN IN PLACE WITH YELLOW OUTPUT NOTED. RECTAL TUBE IN PLACE WITH BROWN LOOSE STOOL PRESENT IN TUBING. WILL CONTINUE TO MONITOR.
--- NOTE | 2018-03-28 22:12 | NUR ---
RT SUCTION/NOSE BLEED PT ATTEMPTING TO COUGH AND SOUNDS WET/PRODUCTIVE. ATTEMPTED MUTLIPLE TIMES TO DEEP SUCTION WITH YANKOUR WITH NO SUCCESS. PT CONTINUED TO BITE DOWN ON YANKOUR. WITHIN 1-2 MINS OF BEING ON AIRVO AND OFF BIPAP PT DESATURATED INTO 50'S. PT PLACED BACK ON BIPAP AND RECOVERED OVER TIME. RT IN ROOM TO NT SUCTION PT. WITH NT SUCTIONING COPIOUS AMOUNT OF OLD BLOOD CLOTS AND SPUTUM SUCTIONED. PT TOLERATED POORLY. PT THEN PLACED ON BIPAP AGAIN. AFTER 15 MINS PT STARTED COUGHING AGAIN AND ALARMING BIPAP, PT FOUND TO BE BLEEDING OMER RED BLOOD FROM RIGHT NARES INTO BIPAP. RT CALLED TO ROOM AND NASAL TRUMPET PLACED AND NT SUCTIONED WITH COPIOUS BLOODY OUTPUT. PT THEN PLACED BACK ON BIPAP WITH NASAL TRUMPET IN PLACE. PT TOLERATING WELL AND RESTING QUIETLY AT THIS TIME. WILL CONTINUE TO MONITOR. VSS.
[2018-03-29 04:07] LABS: BASOPHILS ABSOLUTE AUTO 0.02 K/mm3 (0.00-0.23); BASOPHILS PERCENT AUTO 0 % (0-2); EOSINOPHILS ABSOLUTE AUTO 0.16 K/mm3 (0.00-0.68); EOSINOPHILS PERCENT AUTO 3 % (0-6); Hematocrit 22.2 % (33.0-51.0); Hemoglobin 6.8 g/dL (11.5-16.0); IMMATURE GRAN ABSOLUTE AUTO 0.03 K/mm3 (0.00-0.10); IMMATURE GRAN PERCENT AUTO 1 % (0-1); LYMPHOCYTES PERCENT AUTO 9 % (21-46); MONOCYTES ABSOLUTE AUTO 0.62 K/mm3 (0.16-1.47); MONOCYTES PERCENT AUTO 11 % (4-13); Mean Corpuscular HGB 33.2 pg (26.0-34.0); Mean Corpuscular HGB Conc 30.6 g/dL (31.5-36.5); Mean Corpuscular Volume 108 fL (80-100); Mean Platelet Volume 10.1 fL (9.1-12.4); NEUTROPHILS ABSOLUTE AUTO 4.18 K/mm3 (1.96-9.15); NEUTROPHILS PERCENT AUTO 76 % (41-73); Platelet Count 188 K/mm3 (150-400); RDW Standard Deviation 54.9 fL (35.1-46.3); Red Blood Cell Count 2.05 M/mm3 (3.80-5.20); White Blood Cell Count 5.51 K/mm3 (4.00-11.30)
[2018-03-29 04:22] LABS: Bun/Creatinine Ratio 49.2 (12.0-20.0); Calcium, Blood 9.2 mg/dL (8.5-10.1); Creatinine, Blood 1.79 mg/dL (0.40-1.00); Magnesium, Blood 2.1 mg/dL (1.6-2.4); Potassium, Blood 3.2 mmol/L (3.5-5.5)
--- NOTE | 2018-03-29 05:47 | NUR ---
SHIFT SUMMARY NO ACUTE CHANGES THIS SHIFT. PT HAS DONE WELL WITHOUT RESTRAINTS AND HAS BEEN CALM THROUGHOUT THE NIGHT. PT HAS BEEN MORE ALERT WHEN AWAKE AND HAS BEEN ABLE TO FOLLOW COMMANDS BETTER. PT HAS REMAINED ON BIPAP 10/5, FIO2 45% WITH NASAL TRUMPET REMAINING IN PLACE. NOSE BLEEDING HAS SUBSIDED. VITAL SIGNS HAVE REMAINED STABLE. DOBHOFF REMAINS IN PLACE WITH TF AT 40 ML/HR GOAL RATE. RUBIN TEMP PROBE REMAINS IN PLACE WITH GOOD URINE OUTPUT THIS SHIFT. RECTAL TUBE REMAINS IN PLACE WITH LOOSE BROWN STOOL, OUTPUT SLOWING. RASH HAS REMAINED UNCHANGED. WILL CONTINUE TO MONITOR AND REPORT OFF TO ONCOMING RN.
--- NOTE | 2018-03-29 07:50 | NUR ---
ASSUMED CARE: PT RESTING QUIETLY ON BIPAP AT THIS TIME, FIO2 CURRENTLY ON 45%. DR LINO MADE AWARE OF PT'S NOSE BLEEDS OVER NIGHT AND INSTRUCTS TO CONTINUE GIVING ELIQUIS. SUGGESTS STATUS CHANGE. WILL DISCUSS WITH STAIN APPLICATOR. PT APPEARS COMFORTABLE AT THIS TIME, VSS.
--- NOTE | 2018-03-29 10:46 | NUR ---
ATTEMPTED ORAL CARE ON PT WITH AIRVO. PT WOULD NOT ALLOW AIRVO AND KEPT REMOVING IT. WENT TO PUT MASK BACK ON AND SHE KEPT PULLING THAT OFF WELL. SECOND NURSE AND RESTRAINTS NEEDED TO KEEP MASK ON. PT MAINTAINED SATURATIONS FOR ABOUT 90 SECONDS AND THEN DESATTED INTO 60S AND 70S. DR MCDOWELL AWARE AND STATUS CHANGED BACK TO ICU FOR RESTRAINTS
--- NOTE | 2018-03-29 13:16 | NUR ---
PT HAD TO BE PUT BACK IN RESTRAINTS DUE TO ATTEMPTING TO PULL OFF MASK AGAIN. CALLED PT'S DAUGHTER TO GIVE HER AN UPDATE AND DISCUSSED OUTLOOK WITH HER. DID NOT MAKE SUGGESTIONS BUT PRESENTED FACTS CONCERNING WHAT BIPAP INVOLVES. PT'S DAUGHTER AWARE THAT PT IS CURRENTLY IN RESTRAINTS. DAUGHTER STATES SHE WILL COME BY TO VISIT. CALL TO JOELLEN IN PALLIATIVE CARE TO MAKE HER AWARE DAUGHTER IS COMING. JOELLEN STATES SHE SHOULD BE HERE TO SEE PT AND DAUGHTER AT ABOUT 1400
--- NOTE | 2018-03-29 13:43 | NUR ---
DR MCDOWELL IN ROOM SPEAKING WITH PT'S DAUGHTER AT THIS TIME
--- NOTE | 2018-03-29 15:05 | NUR ---
Pt is currently on bipap, restraints. Pt had been agitated earlier and pulling on the mask. Daughter is in room at this time. She is in distress. Lindsey has been the only member of her family to visit in room with her mother. Pt's son is medically fragile, having diabetes from the age of 6. He refuses to come see mom because she is in contact isolation and he feels that he is too compromised to visit. The patient's is in [facility] at this time. Daughter has been cleaning up the mess at the patient's home: Pt had c-diff infection at home and her bed/bathroom was covered in liquid stool. Daughter has been the only one dealing with this. Encouraged self care. Discussed current condition of patient. Lindsey is discouraged that she seemed to take a "big step back" from yesterday. Therapeutic listening for Lindsey. Bleach wipes and gloves gathered for Lindsey, as she would feel better cleaning the house with those. Education on c-diff infection and prevention. Handwashing encouraged for all members. Lindsey will try to get her dad and mom to facetime. She wants her family to see how mom looks, as she has carried this burden herself. She is also considering that if mom doesn't do better, she may have to have family come in to say goodbye to her. Letter from doc stating that patient unable to make finacial decisions was provided to Lindsey for their developer prover upholstering. Will remain available.
--- NOTE | 2018-03-29 18:49 | NUR ---
SHIFT SUMMARY: PT'S DAUGHTER CAME BY THIS AFTERNOON AND SPOKE WITH DR MCDOWELL, DR DOOLEY AND PALLIATIVE CARE. STAFF SPOKE WITH HER ABOUT PROGNOSIS AND DECISIONS MOVING FORWARD. DAUGHTER STATES SHE SPOKE WITH HER FATHER AND BROTHER ABOUT PROGNOSIS. PLAN IS TO GIVE PT A FEW MORE DAYS TO SEE IF SHE IS IMPROVING, BUT GIVEN SHE HAS BEEN ON BIPAP FOR SEVERAL DAYS WITH LITTLE PROGRESS, FAMILY KNOWS THEY MAY NEEDS TO CONSIDER COMFORT CARE. PT CURRENTLY ON BIPAP AND RESTRAINTS, FENTANYL GIVEN FOR COMFORT THIS SHIFT. SEE EMAR. NO FURTHER NEEDS AT THIS TIME
--- NOTE | 2018-03-29 19:50 | NUR ---
ASSUMED CARE BEDSIDE REPORT RECIEVED. PT IS RESTING IN BED CALMLY AT THIS TIME. PT IS AWAKE, ALERT, AND ABLE TO NOD HEAD YES OR NO TO SOME QUESTIONS. PT IS UNABLE TO SPEAK OTHER THAN SOME WORDS AT TIMES. PT SHAKES HEAD NO TO PAIN. VITAL SIGNS STABLE ON BIPAP 10/5, FIO2 50%. PT IS IN SBW RESTRAINTS AT THIS TIME DUE TO CONTINUED PULLING AT LINES/TUBES/BIPAP. DOBHOFF IN PLACE WITH TF AT 40 ML/HR GOAL RATE WITH 250 ML Q4H FLUSHES. RUBIN IN PLACE WITH YELLOW OUTPUT NOTED. RECTAL TUBE IN PLACE WITH BROWN OUTPUT NOTED. RASH TO UPPER LEGS AND UPPER BODY HAS CONTINUED TO IMPROVE. PT FIDGETING IN BED. WILL CONTINUE TO MONITOR.
[2018-03-30 04:29] LABS: BASOPHILS ABSOLUTE AUTO 0.03 K/mm3 (0.00-0.23); BASOPHILS PERCENT AUTO 1 % (0-2); EOSINOPHILS ABSOLUTE AUTO 0.15 K/mm3 (0.00-0.68); EOSINOPHILS PERCENT AUTO 3 % (0-6); Hematocrit 26.5 % (33.0-51.0); Hemoglobin 8.1 g/dL (11.5-16.0); IMMATURE GRAN ABSOLUTE AUTO 0.04 K/mm3 (0.00-0.10); IMMATURE GRAN PERCENT AUTO 1 % (0-1); LYMPHOCYTES ABSOLUTE AUTO 0.59 K/mm3 (0.84-5.20); LYMPHOCYTES PERCENT AUTO 11 % (21-46); MONOCYTES ABSOLUTE AUTO 0.67 K/mm3 (0.16-1.47); MONOCYTES PERCENT AUTO 13 % (4-13); Mean Corpuscular HGB 31.4 pg (26.0-34.0); Mean Corpuscular HGB Conc 30.6 g/dL (31.5-36.5); Mean Platelet Volume 10.2 fL (9.1-12.4); NEUTROPHILS ABSOLUTE AUTO 3.88 K/mm3 (1.96-9.15); NEUTROPHILS PERCENT AUTO 72 % (41-73); Platelet Count 182 K/mm3 (150-400); RDW Coefficient Variation 15.4 % (11.7-14.2); Red Blood Cell Count 2.58 M/mm3 (3.80-5.20); White Blood Cell Count 5.36 K/mm3 (4.00-11.30)
[2018-03-30 04:31] LABS: Mean Corpuscular Volume 103 fL (80-100)
[2018-03-30 04:45] LABS: Bun/Creatinine Ratio 52.3 (12.0-20.0); Calcium, Blood 9.4 mg/dL (8.5-10.1); Creatinine, Blood 1.53 mg/dL (0.40-1.00); Potassium, Blood 3.9 mmol/L (3.5-5.5)
--- NOTE | 2018-03-30 06:08 | NUR ---
SHIFT SUMMARY NO ACUTE CHANGES THIS SHIFT. PT HAS REMAINED ON BIPAP THROUGHOUT THE NIGHT. PT RESPONSIVNESS AND ORIENTATION UNCHANGED THROUGHOUT THE SHIFT. PT HAS REMAINED IN SBW RESTRAINTS DUE TO CONTINUED ATTEMPTS TO PULL OFF BIPAP. BIPAP REMAINS AT 10/5, FIO2 50%. DOBHOFF REMAINS INPLACE WITH TF AT 40 ML/HR GOAL. PICC TO RINKU C/D/I, SALINE LOCKED. RUBIN REMAINS IN PLACE WITH GOOD URINE OUTPUT THIS SHIFT, SOME SEDIMENT NOTED. RECTAL TUBE REMAINS IN PLACE WITH LOOSE BROWN OUTPUT. VITAL SIGNS HAVE REMAINED STABLE, PT HYPERTENSIVE, MED PER EMAR. WILL CONTINUE TO MONITOR AND REPORT OFF TO ONCOMING RN.
--- NOTE | 2018-03-30 07:30 | NUR ---
INITIAL ASSESSMENT: Pt laying in bed with bilateral soft wrist restraints in place. Checked circulation skin. Bipap in place at 10/5 with 50% fio2. LS diminished with coarseness and wheezing. HR reg. BT very hyperactive. Rectal tube in place draining green/brown loose stool. Leblanc cath draining clear yellow urine with some sediment in place. Cath care completed. Will continue to monitor patient.
--- NOTE | 2018-03-30 11:27 | NUR ---
Update: Pt up to relciner chair using lift after bedbath was given. Pt out of restraints and is not pulling on bipap at this time. BIox 95%. Fio2 was decreased to 45% by RT. BP has improved since AM medications were given. Will continue to monitor.
--- NOTE | 2018-03-30 11:45 | NUR ---
FAMILY CONFERENCE NOTE: Spoke with carmita Portillo by phone earlier this am and arranged to meet with her, pt's and other family members after his scheduled OP CT. Carmita was picking dad up at [place] to bring him to [facility]. Met in ICU waiting area with pt's , JOHNSON, who is frail and very [place] but very alert and oriented. Also present was carmita, Lindsey, son, Thor and ANTONY. Current status progress and lack of progress with mentation and respiratory status reviewed in detail multiple times. Family's questions answered. Best case scenario and worst case scenario's reviewed and what that would mean for pt. states mulptiple times that in previous discussions with pt they agreed that neither of them wanted to remain on life support. Resp. support and tube feeding for past two weeks viewed as life support from 's perspective. Dr Vallejo joined family conference and answered family's questions also and gave detailed information on current status and anticipated improvement in past two weeks that has not happened. Family given time to discuss information and come to decision regarding whether they would like to continue current level of care or consider comfort care. Dr Raya updated on all of above. Plan to return to ICU this afternoon and continue conversation, support to family in their advanced care planning decisions.
--- NOTE | 2018-03-30 12:55 | NUR ---
I was contacted by the ICU Nurse and was told that the family was placing the patient on comfort care and were requesting a Head Of Loss Prevention. I met the family in the waiting room and after going over the situation the patients Chase asked if the family could step out so he could speak to me privately. We discussed the difficulty of the decision and Chase shared with me personal issues of an emotional and spiritual nature. I listened empathically, provided pastoral child care counselor and provided prayer. Patient was tearful but grateful. I then welcomed the family back into the waiting room and said that I would be available throughout the day for further support. Daughter Lindsey said she would like to meet with me after comfort measures made been set up for her mother.
--- NOTE | 2018-03-30 13:31 | NUR ---
CC STATUS Pt was changed to comfort care status per and Daughter. Orders placed. Daughter requesting to wait to take her off Bipap until she returns from taking her father home. Agreed to do this. Pt pulling at Bipap, acts like she wants this off, seems slightly agitated by the bipap and anything around her face. Talked to Pt and asked her if she would wait until her daughter returned to take off the mask. Pt nodded yes and stopped pulling at bipap. Pt still not able to verbalize and is only able to follow some directions. Will monitor.
--- NOTE | 2018-03-30 14:19 | NUR ---
Pt. pulling at bipap again, trying to take off. Was able to convince Pt to let me put it back on until daughter was in the room. Pt also appears uncomfortable. Medicated with 25mcg Fentynal IV. Pt tolerated well. Appears to be resting comfortably at this time. Tube feedings were stopped. Will continue to monitor.
--- NOTE | 2018-03-30 14:45 | NUR ---
PT PULLED OFF BIPAP AGAIN. APPEARS TO BE AGITATED AND DYSPNIC. PT PUSHING AT RN'S HANDS WHEN ATTEMPTING TO PLACE BIPAP. MEDICATED WITH ROXINAL FOR AIR HUNGER. AFTER A FEW MINUTES PT ALLOWED RN TO HOLD BIPAP TO FACE WHILE WAITING FOR PT DAUGHTER TO ARRIVE.
--- NOTE | 2018-03-30 15:11 | NUR ---
DAUGHTER AND SON IN LAW IN ROOM. PT MEDICATED WITH ATIVAN FOR APPEARANCE OF SOME ANXIETY. DAUGHTER AND SON-IN-LAW EDUCATED ABOUT BIPAP, AND THE /DYING PROCESS WELL THE GOALS OF COMFORT CARE. THEY VERBALIZED UNDERSTANDING. RN HOLDING BIPAP TO FACE WHILE DAUGHTER TALKING TO PT AND UNITL SHE IS READY TO REMOVE BIPAP
--- NOTE | 2018-03-30 16:05 | NUR ---
REMOVED BIPAP. PT MEDICATED AGAIN WITH ROXINAL FOR AIR HUNGER. PT OPENING EYES AND SMILING AT FAMILY BUT NOT TALKING AT ALL. ORAL CARE DONE. PT WILL GRIMACE AT TIMES. WILL MEDICATE PER ORDERS FOR AND S/S OF AIR HUNGER, ANXIETY OR PAIN. DAUGHTER AND SON-IN-LAW AT BEDSIDE.
--- NOTE | 2018-03-30 16:29 | NUR ---
I responded to a call from ICU nurse asking if I could meet with patients daughter Lindsey in the waiting room. She was tearful and wanting to talk about end of life decision for the patient. She admitted to struggling with spiritual issues regarding her decisions. I normalized her experience, listened empathically, provided a calming presence and provided prayer. Patient expressed gratitude for my imput and appeared to have some reduced stress.
--- NOTE | 2018-03-30 17:47 | NUR ---
SHIFT SUMMARY: Pt lying in bed with daughter and son-in-law at bedside. Pt was changed to comfort care status this afternoon around 1300. Bipap was kept on until daughter returned to room per daughters request. At around 1600, with daughter in room, Bipap was removed. Pt was medicated for air hunger and anxiety. Pt Seems fairly comfortable. Monitors were removed. Will continue to keep pt comfortable per comfort care orders. Will report to night rn.
--- NOTE | 2018-03-30 20:17 | NUR ---
REPORT FROM ALPA VASQUEZ AT START OF SHIFT. PT WITH FAMILY MEMBER AT THE BEDSIDE. INTRODUCED SELF TO FAMILY AND UPDATED REGARDING CHANGE OF SHIFT. CURRENTLY SAME FAMILY MEMBER AT THE BEDSIDE. PT WITH AGONAL BREATHING. PT'S FAMILY MEMBER STATED DID NOT WANT PT TO RECEIVE EYE DROPS TONIGHT. WILL DC.
--- NOTE | 2018-03-30 21:15 | NUR ---
PROVIDED EMOTIONAL SUPPORT TO PT'S DAUGHTER JM WHO STILL REMAINS AT BEDSIDE. PT'S DAUGHTER STATED PT APPEARS COMFORTABLE AND DID NOT WANT PT REPOSITIONED AT THIS TIME. PT DOES APPEAR COMFORTABLE AND IN NO DISTRESS. WILL CONTINUE TO PROVIDE SUPPORT TO FAMILY AND PROVIDE PT CARE PRN AND PER FAMILY.
--- NOTE | 2018-03-30 21:54 | NUR ---
PT'S DAUGHTER CALLED TO RN TO BRING THIS RN TO ROOM. PT'S DAUGHTER JM AT BEDSIDE AND STATED PT APPEARS TO BE IN PAIN AND RESTLESS. PT MOANING AND LIFTING LEGS. PT MEDICATED WITH ROXANOL 20mg ORAL AND PER PT'S EDYTAAGHTER REQUEST PT REPOSITIONED AND MEDICATED WITH ATIVAN 1mg. PT GIVEN WARM BLANKETS PER DAUGHTER REQUEST. DAUGHTER REMAINS AT BEDSIDE. WILL CONTINUE TO MONITOR.
--- NOTE | 2018-03-30 22:42 | NUR ---
PT ROUNDING. PT'S DAUGHTER STATED THAT PT SEEMED ABOUT THE SAME. PT MOANING AND LITTLE EXT MOVEMENT. PT MEDICATED WITH ROXANOL 20mg PER FAMILY REQUEST.
--- NOTE | 2018-03-31 01:50 | NUR ---
FAMILY REMAIN AT BEDSIDE. PT'S DAUGHTER STATED PT HAS BEEN GRIMACING. PT MEDICATED WITH MORPHING 2mg IVP. PT GIVEN ORAL CARE THEN MOUTH MOISTURIZER APPLIED. PT'S FEET ELEVATED ON PILLOWS. RUBIN CATHETER TO GRAVITY DRAINING SMALL AMOUNT OF YELLOW CLOUDY URINE. RECTAL TUBE TO GRAVITY DRAINING DARK BROWN LIQUID STOOL. WILL CONTINUE TO MONITOR.
--- NOTE | 2018-03-31 04:05 | NUR ---
PT PASSED: THIS RN TO DOOR FOR ROUNDING. PT'S DAUGHTER TO SIDE OF BED AND STATED, "I THINK SHE JUST PASSED". THIS RN TO BEDSIDE. PT SKIN PALE. NO PULSE NOTED AUSCULTATED NOR COROTID, PT WITH NO BREATHS NOTED. PT'S DAUGHTER STATED THAT PT PASSED AT 0356 AND THAT PT IS TO GO TO [facility]. PT'S DAUGHTER REMAINS AT BEDSIDE.
== END 2018-03-31 03:56 | DRG 870 ==
LOC: ER 10:31 → ICUW 16:38 → ICUE 16:38
PROVIDERS: Emergency Medicine; Family Medicine; Internal Medicine; Internal Medicine Critical Care Medicine; Internal Medicine Nephrology; Internal Medicine Pulmonary Disease; Nurse Practitioner Acute Care; ADMIT Hospitalist
PROC: 009U3ZX Drainage of Spinal Canal, Percutaneous Approach, Diagnostic (ICD-10-PCS; principal; 2018-03-14)
PROC: 5A09357 Assistance with Respiratory Ventilation, Less than 24 Consecutive Hours, Continuous Positive Airway Pressure (ICD-10-PCS; 2018-03-14)
PROC: 5A1955Z Respiratory Ventilation, Greater than 96 Consecutive Hours (ICD-10-PCS; 2018-03-15)
PROC: 0BH18EZ Insertion of Endotracheal Airway into Trachea, Via Natural or Artificial Opening Endoscopic (ICD-10-PCS; 2018-03-15)
PROC: 02HV33Z Insertion of Infusion Device into Superior Vena Cava, Percutaneous Approach (ICD-10-PCS; 2018-03-18)
PROC: B548ZZA Ultrasonography of Superior Vena Cava, Guidance (ICD-10-PCS; 2018-03-18)
PROC: 30243N1 Transfusion of Nonautologous Red Blood Cells into Central Vein, Percutaneous Approach (ICD-10-PCS; 2018-03-21)
PROC: 30243N1 Transfusion of Nonautologous Red Blood Cells into Central Vein, Percutaneous Approach (ICD-10-PCS; 2018-03-29)
DX: A41.01 Sepsis due to Methicillin susceptible Staphylococcus aureus (principal); R65.21 Severe sepsis with septic shock; J96.21 Acute and chronic respiratory failure with hypoxia; J96.02 Acute respiratory failure with hypercapnia; N17.0 Acute kidney failure with tubular necrosis; I50.23 Acute on chronic systolic (congestive) heart failure; J15.211 Pneumonia due to Methicillin susceptible Staphylococcus aureus; J15.0 Pneumonia due to Klebsiella pneumoniae; G93.41 Metabolic encephalopathy; K85.90 Acute pancreatitis without necrosis or infection, unspecified; N17.9 Acute kidney failure, unspecified; E87.4 Mixed disorder of acid-base balance; A04.72 Enterocolitis due to Clostridium difficile, not specified as recurrent; M62.82 Rhabdomyolysis; I13.0 Hypertensive heart and chronic kidney disease with heart failure and stage 1 through stage 4 chronic kidney disease, or unspecified chronic kidney disease; J44.0 Chronic obstructive pulmonary disease with (acute) lower respiratory infection; E87.1 Hypo-osmolality and hyponatremia; Z51.5 Encounter for palliative care; J98.11 Atelectasis; A41.89 Other specified sepsis; Z99.81 Dependence on supplemental oxygen; I48.91 Unspecified atrial fibrillation; E87.5 Hyperkalemia; E88.09 Other disorders of plasma-protein metabolism, not elsewhere classified; I48.0 Paroxysmal atrial fibrillation; D69.6 Thrombocytopenia, unspecified; E83.39 Other disorders of phosphorus metabolism; R13.10 Dysphagia, unspecified; E83.42 Hypomagnesemia; Z78.1 Physical restraint status; N18.3 Chronic kidney disease, stage 3 (moderate); I73.9 Peripheral vascular disease, unspecified; D64.9 Anemia, unspecified; Z66 Do not resuscitate; E03.9 Hypothyroidism, unspecified; I12.9 Hypertensive chronic kidney disease with stage 1 through stage 4 chronic kidney disease, or unspecified chronic kidney disease; N39.3 Stress incontinence (female) (male); E87.6 Hypokalemia; Z16.11 Resistance to penicillins; Z74.09 Other reduced mobility; L23.9 Allergic contact dermatitis, unspecified cause; R04.0 Epistaxis; Z91.19 Patient's noncompliance with other medical treatment and regimen; Z79.82 Long term (current) use of aspirin; Z79.899 Other long term (current) drug therapy
CPT/HCPCS: 31500; 31720; 36415; 36430; 36569; 36600; 51702; 62270; 70450; 71045; 74176; 76700; 76770; 80047; 80048; 80053; 80069; 80076; 80202; 81001; 81050; 82550; 82570; 82784; 82803; 82945; 82947; 83010; 83516; 83520; 83605; 83615; 83625; 83690; 83735; 83880; 84100; 84132; 84156; 84157; 84165; 84166; 84300; 84478; 84550; 85014; 85018; 85025; 85610; 85730; 86038; 86256; 86334; 86335; 86850; 86900; 86901; 86923; 87040; 87070; 87077; 87086; 87147; 87186; 87205; 87493; 87804; 89051; 93005; 93010; 93306; 94002; 94003; 94640; 94660; 94667; 94668; 96365; 96375; 97163; 97530; 99285-25; C1751; C9113; G0480; G8978; G8979; J0295; J0360; J0881; J1630; J1940; J2060; J2270; J2543; J3010; J3370; J3475; J3480; J7030; J7050; J7060; J7070; P9016; P9041; P9612